=== PATIENT | male | born 1970 | race Asian ===

== ENCOUNTER → 2016-03-04 | Outpatient (CLI) | payer OTHER ==
--- NOTE | 2016-03-04 11:34 | REP ---
Clinical: Elevated liver function tests. Technique: Murphy scale ultrasound using curved array transducer. Findings: The liver demonstrates increased echogenicity suggesting fatty infiltration with focal fatty sparing at the ricky hepatis. Limited evaluation of the pancreas is unremarkable. Gallbladder demonstrates small peripheral echogenicities without shadowing measuring up to 4.5 mm suggesting small benign polyps. No cholelithiasis, wall thickening, or pericholecystic fluid. No biliary ductal dilatation is appreciated and the common bile duct measures 3.2 mm diameter. Right kidney is normal in reniform shape without hydronephrosis and measures 10.1 x 5.1 x 5.2 cm. Impression: 1. Fatty infiltration with focal fatty sparing to the liver. 2. Few small presumed benign gallbladder polyps up to 4.5 mm.
== END ==
LOC: M WHC 09:51
PROVIDERS: ATTEND Physician Assistant Medical
DX: K76.9 Liver disease, unspecified (principal); K87 Disorders of gallbladder, biliary tract and pancreas in diseases classified elsewhere

== ENCOUNTER → 2018-07-31 | Outpatient (REF) | payer BC ==
[~2018-07-31] MED LIST: ACET-907 PO; ALL10TAB28 PO; BREO1INH PO; FLON1SPR; FLUO20CA19 PO; FLUO40CA PO
== END ==
LOC: M LAB REF 12:09
PROVIDERS: ATTEND Physician Assistant
DX: A09 Infectious gastroenteritis and colitis, unspecified (principal)

== ENCOUNTER 2018-08-03 13:06 | Inpatient (IN) | payer BC, OTHER ==
[~2018-08-03] VITALS: Ht 180.3 cm; Wt 104.5 kg
[2018-08-03] MEDS ORDERED: ALL10TAB28 PO (13:50)
[2018-08-03] MEDS ORDERED: BREO1INH PO (13:50)
[2018-08-03] MEDS ORDERED: FLUO40CA PO (13:50)
[2018-08-03] MEDS ORDERED: FLON1SPR (13:50)
[2018-08-03] MEDS ORDERED: ACETAMINOPHEN TAB 650MG DOSE (2X325MG) PO ONE (14:15)
[2018-08-03] MEDS ORDERED: NS 1,000 ML IV ONE (14:15)
[2018-08-03] MEDS ORDERED: KETOROLAC 30 MG/ML VIAL (J1885) IV ONE (14:15)
[2018-08-03 14:27] LABS: BASO % 0.2 % (0.0-1.0); HEMATOCRIT 43.6 % (42.0-52.0); HEMOGLOBIN 14.9 g/dl (13.5-17.5); LYMPH # 1.6 10^3/uL (1.5-4.5); LYMPH % 7.4 % (24.0-44.0); MEAN CORPUSCULAR HEMOGLOBIN 28.6 pg (27.0-33.0); MEAN CORPUSCULAR HGB CONC 34.2 g/dl (32.0-36.5); MEAN CORPUSCULAR VOLUME 83.7 fl (80.0-96.0); MONO # 1.5 10^3/uL (0.0-0.8); MONO % 7.1 % (0.0-5.0); NEUTROPHILS # 18.3 10^3/uL (1.8-7.7); NEUTROPHILS % 84.5 % (36.0-66.0); PLATELET COUNT, AUTOMATED 222 10^3/uL (150-450); RED BLOOD COUNT 5.21 10^6/uL (4.30-6.10); WHITE BLOOD COUNT 21.7 10^3/uL (4.0-10.0)
[2018-08-03 14:37] LABS: INR 1.12; PROTHROMBIN TIME 14.6 SECONDS (12.1-14.4)
[2018-08-03 14:38] LABS: PARTIAL THROMBOPLASTIN TIME 31.4 SECONDS (25.4-37.6)
[2018-08-03 14:47] LABS: ERYTHROCYTE SEDIMENTATION RATE 55 mm/hr (0-15)
[2018-08-03 15:04] LABS: ALBUMIN 3.6 GM/DL (3.2-5.2); ALT/SGPT 40 U/L (12-78); BILIRUBIN,DIRECT 0.4 MG/DL (0.0-0.2); BILIRUBIN,TOTAL 1.2 MG/DL (0.2-1.0); BLOOD UREA NITROGEN 12 MG/DL (7-18); CALCIUM LEVEL 8.5 MG/DL (8.5-10.1); CARBON DIOXIDE LEVEL 26 MEQ/L (21-32); CHLORIDE LEVEL 105 MEQ/L (98-107); CREATININE FOR GFR 1.27 MG/DL (0.70-1.30); GLOMERULAR FILTRATION RATE > 60.0 (>60); GLUCOSE, FASTING 109 MG/DL (70-100); LIPASE 102 U/L (73-393); POTASSIUM SERUM 3.8 MEQ/L (3.5-5.1); SODIUM LEVEL 140 MEQ/L (136-145); TOTAL PROTEIN 7.2 GM/DL (6.4-8.2)
[2018-08-03] MEDS ORDERED: ISOVUE-370 76% 100ML VIAL (Q9967) As Ordered ONE (15:05)
[2018-08-03] MEDS ORDERED: ONDANSETRON 4MG/2ML VIAL (J2405) IV PRN (16:15)
[2018-08-03] MEDS ORDERED: MORPHINE 4 MG/ML 1ML VIAL/SYRINGE (J2270) IV PRN (16:15)
[2018-08-03] MEDS ORDERED: PIPERACILLIN/TAZOBACTAM SOD 3.375 GM in D5W MINI-BAG PLUS 50 ML IV ONE (16:15)
[2018-08-03] MEDS ORDERED: ACET-907 PO (16:31)
[2018-08-03] MEDS ORDERED: FLUO20CA19 PO (16:31)
--- NOTE | 2018-08-03 16:33 | REP ---
CT ABDOMEN AND PELVIS WITH IV CONTRAST: TECHNIQUE: Axial contrast enhanced images from the lung bases to the pubic symphysis using 100 mL Isovue 370 intravenous contrast material with multiplanar reformations. Visualized lung bases demonstrate mild fibro atelectatic change. The liver, spleen, adrenals, pancreas and kidneys are unremarkable. Abdominal aort is normal in caliber. There is no significant adenopathy. Sigmoid diverticula are present. There is segmental thickening of the sigmoid colon. There is surrounding streaky inflammatory change in the pericolonic fat. In addition there are foci of free air immediately surrounding the sigmoid colon with a collection of free air posterior to it. Small foci of free air extend up the central mesentery superiorly into the lower abdomen. I see no significant free fluid or fluid collection. Urinary bladder is mildly distended and not optimally evaluated. IMPRESSION: Perforated sigmoid diverticulitis. Focal free air in the pericolonic fat surrounding the sigmoid colon. Small foci of free mesenteric air seen in the lower abdomen centrally. Oswaldo Gates was informed of these findings by telephone at the time of the exam at approximately 3:50 p.m., 08/03/2018. Electronically Signed by Christopher Murphy MD 08/03/2018 08:17 P
[2018-08-03 16:45] VITALS: BP 111/70
[2018-08-03] MEDS: LR 1,000 ML IV SCH (17:07)
[2018-08-03] MEDS: PERCOCET 5MG/325MG TAB PO PRN ×2 (18:42→22:51)
--- NOTE | 2018-08-03 19:25 | HPEPDOC ---
General Surgery H&P Date of Admission Aug 03, 2018 Attending Physician: PHI WYNNE MD History and Physical CHIEF COMPLAINT: Abdominal pain HISTORY OF PRESENT ILLNESS: Patient presents himself to the emergency room with a 4 day history of ongoing abdominal pain and febrile episodes. Reports that he was in his usual state of health. Thursday morning when he woke up in about of loose stools and later during the day started having generalized crampy abdominal pain. Also the same time was having several episodes of 202. He has been taking ibuprofen both the pain and fever. He still is passing gas and Thursday he had another bout of loose bowel movements though less in amount. He was seen at the urgent care on Thursday. He was instructed to keep an eye on it and if it doesn't get better go to his primary doctor. He saw his primary doctor Thursday but at that time he reports that the pain has somewhat subsided and his upper abdomen is localized over the lower abdomen and suprapubic area. He was suspected it might had something viral and was instructed to hydrate himself and continue to watch for any development or worsening symptoms. It did worsen Thursday evening prompting him to call back his primary doctor but was unable to see him thus he presented to the emergency room. He continues to reports febrile episodes, mild bouts of nausea. Was able to tolerate food with some fullness but no vomiting. He reports a decrease in appetite. He has no prior episodes of similar symptoms. He has no significant personal or family history for inflammatory bowel disease or malignancy. He has no prior colonoscopies done for any reason. ALLERGIES: Please see below. HOME MEDICATIONS: Please see below. PAST MEDICAL HISTORY: 1. Mild intermittent asthma 2. Anxiety and depression 3. CHALINO on CPAP 4. Allergic rhinitis. PAST SURGICAL HISTORY: 1. None PERSONAL/SOCIAL HISTORY: [Denies smoking, alcohol use, or recreational drug use]. REVIEW OF SYSTEMS: GENERAL: Patient reports intermittent fevers since Thursday. Denies any abnormal weight loss NECK: [Denies any neck pain]. CARDIOVASCULAR: [Denies chest pain and palpitations]. MUSCULOSKELETAL: [Denies arthralgias, back pain and thrombophlebitis]. SKIN: [Denies rash]. NEUROLOGIC: [Denies headache, stroke and transient ischemic attack]. PSYCHIATRIC: Reports history of anxiety and depression on medications. ENDOCRINE: [Denies thyroid disease]. HEMATOLOGY/ONCOLOGY: [Denies any bleeding or clotting disorder]. HEART: [Denies any chest pains, palpitations, paroxysmal dyspnea, orthopnea]. PULMONARY: [Denies chronic cough, dyspnea and wheezing]. GASTROINTESTINAL: [Denies rectal bleeding, family history of colon cancer, constipation, diarrhea, dysphagia, heartburn and jaundice]. GENITOURINARY: [Denies dysuria, frequency, hematuria and nocturia]. ENDOCRINE: [Denies polydipsia, polyphagia, polyuria, heat or cold intolerance]. INFECTIOUS: [Denies any recent upper respiratory tract infection, UTI, need for use of antibiotics]. NUTRITION: Reports still able to eat so appetite has decreased. Denies vomiting. PHYSICAL EXAMINATION: VITAL SIGNS: Please see below. GENERAL APPEARANCE: Patient seen laying on bed looks mildly uncomfortable. He is very pleasant and cooperative. [Awake, alert, oriented]. HEENT: [Normocephalic, atraumatic. [place] palpebral conjunctivae. Anicteric sclerae. Lips mildly dry]. CHEST: [No chest wall abnormalities. Normal respiratory motion/effort]. NECK: [Supple. No thyromegaly. No lymphadenopathies]. LUNGS: [Lung sounds are clear to auscultation bilaterally. No wheezing appreciated]. HEART: [No chest wall abnormalities. Heart rate and rhythm are regular with no murmurs]. ABDOMEN: Abdomen is round, mildly distended and tympanitic to percussion. No noticeable umbilical or groin herniations. He is mildly tender in both right and left sides of the lower abdomen and moderately tender over the suprapubic area with mild guarding. He has no rebound tenderness. He is nontender in the upper part of the abdomen and epigastric area. SKIN: Warm and dry. EXTREMITIES: No deformities, no edema. NEUROLOGICAL: Awake, alert, oriented. No sensory deficits. No muscle deficits. ANCILLARIES: . LABORATORY DATA: Please see below. MICROBIOLOGY: Please see below. IMAGING: CT scan abdomen and pelvis Perforated sigmoid diverticulitis. With focal free in the pericolonic fat surrounding the sigmoid colon. Small foci of free mesenteric air is seen in the lower abdomen centrally. IMPRESSION AND PLAN: Acute diverticulitis ([place] 2) Patient is about the for now since he started eating symptomatic from his acute diverticulitis. There is no free perforation but probably contained perforation behind the mesentery of the sigmoid colon without any evidence of abscess at this point. Clinically he mostly has tenderness in the lower abdomen and does not have generalized peritonitis. His fever though is a bit concerning. He is hemodynamically stable and not showing, C4 to fever, severe signs of inflammatory reaction from this infection. Nothing by mouth IV antibiotics Serial examination possibly reimage in a couple of days ago for progression to abscess We'll continue IV antibiotics, short period of bowel rest and observe his course. I told him I would like to see improvement of his febrile episodes as well as the abdominal pain that sometimes the pain may linger. He most likely will need to reimage in 2-3 days to look for any development of abscess. The fever continues, clinically he worsens or does not get better and the imaging does not show improvement then he may need surgery. He has been advised to poss ibility of needing a temporary colostomy in case he needs surgery for sigmoid colon resection. If he does Better with or without drainage he will need a colonoscopy in a few months or so may need to confirm diagnosis of diverticulosis and rule out other causes of inflammation as he has never had a c olonoscopy done. I have explained to him the different scenarios, at times that he needs surgery, the expectation of in the ankle improvement as well as laboratory improvement and imaging improvement in a couple days with antibiotic therapy. His questions were answered at the time that I saw him. He did not voice out any particular concerns. He voices understanding for our plan. Vital Signs Vital Signs Date Time Temp Pulse Resp B/P (MAP) Pulse Ox O2 Delivery O2 Flow Rate FiO2 08/03/18 16:45 98.2 80 20 111/70 (84) 95 08/03/18 15:53 Room Air Laboratory Data Labs 24H Laboratory Tests 2 08/03/18 13:51: Immature Granulocyte % (Auto) 0.8, White Blood Count 21.7H, Red Blood Count 5.21, Hemoglobin 14.9, Hematocrit 43.6, Mean Corpuscular Volume 83.7, Mean Corpuscular Hemoglobin 28.6, Mean Corpuscular Hemoglobin Concent 34.2, Red Cell Distribution Width 12.5, Platelet Count 222, Neutrophils (%) (Auto) 84.5H, Lymphocytes (%) (Auto) 7.4L, Monocytes (%) (Auto) 7.1H, Eosinophils (%) (Auto) 0.0, Basophils (%) (Auto) 0.2, Neutrophils # (Auto) 18.3H, Lymphocytes # (Auto) 1.6, Monocytes # (Auto) 1.5H, Eosinophils # (Auto) 0.0, Basophils # (Auto) 0.0, Nucleated Red Blood Cells % (auto) 0.0, Erythrocyte Sedimentation Rate 55H, Prothrombin Time 14.6H, Prothromb Time International Ratio 1.12, Activated Partial Thromboplast Time 31.4, Anion Gap 9, Glomerular Filtration Rate > 60.0, Lactic Acid Level 1.5, Calcium Level 8.5, Aspartate Amino Transf (AST/SGOT) 16, Alanine Aminotransferase (ALT/SGPT) 40, Alkaline Phosphatase 65, Total Bilirubin 1.2H, Direct Bilirubin 0.4H, C-Reactive Protein, Quantitative 30.50H, Total Protein 7.2, Albumin 3.6, Albumin/Globulin Ratio 1.00, Lipase 102 08/03/18 13:58: Urine Color BRODY, Urine Appearance CLEAR, Urine pH 5.0, Urine Specific [place] 1.031, Urine Protein NEGATIVE, Urine Glucose (UA) NEGATIVE, Urine Ketones NEGATI VE, Urine Blood 1+H, Urine Nitrite NEGATIVE, Urine Bilirubin NEGATIVE, Urine Urobilinogen 2.0H, Urine Leukocyte Esterase NEGATIVE, Urine WBC (Auto) 2, Urine RBC (Auto) 5H, Urine Hyaline Casts (Auto) 0, Urine Bacteria (Auto) NEGATIVE, Urine Squamous Epithelial Cells 0, Urine Mucus (Auto) SMALL, Urine Sperm (Auto) CBC/BMP Laboratory Tests 08/03/18 13:51 Red Blood Count 5.21, Mean Corpuscular Volume 83.7, Mean Corpuscular Hemoglobin 28.6, Mean Corpuscular Hemoglobin Concent 34.2, Red Cell Distribution Width 12.5, Neutrophils (%) (Auto) 84.5 H, Lymphocytes (%) (Auto) 7.4 L, Monocytes (%) (Auto) 7.1 H, Eosinophils (%) (Auto) 0.0, Basophils (%) (Auto) 0.2, Neutrophils # (Auto) 18.3 H, Lymphocytes # (Auto) 1.6, Monocytes # (Auto) 1.5 H, Eosinophils # (Auto) 0.0, Basophils # (Auto) 0.0 Microbiology Microbiology 08/03/18 Blood Culture, Received Pending 08/03/18 Blood Culture, Received Pending Home Medications Scheduled Cetirizine HCl (Cetirizine HCl) 10 Mg Tablet, 10 MG PO DAILY, (Reported) Fluoxetine Hcl (Fluoxetine HCl) 20 Mg Capsule, 40 MG PO DAILY, (Reported) Fluticasone Propionate (Flonase Allergy Relief) 9.9 Ml [place].susp, 1 SPRAY NA DAILY, (Reported) Fluticasone/Vilanterol (Breo Ellipta 100-25 Mcg INH) 1 Each Blst.w.dev, 1 PUFF PO DAILY, (Reported) Scheduled PRN Acetaminophen (Tylenol) 325 Mg Tablet, 1,300 MG PO BID PRN for PAIN, (Reported) Allergies Coded Allergies: No Known Allergies (Unverified , 08/03/18) A-FIB/CHADSVASC A-FIB History Current/History of A-Fib/PAF?: No Current PO Anticoag Therapy: No PHI WYNNE MD Aug 03, 2018 18:42
[2018-08-03] MEDS: ACETAMINOPHEN TAB 650MG DOSE (2X325MG) PO PRN (19:43)
[2018-08-03 20:00] VITALS: BP 119/70
[2018-08-03] MEDS: PIPERACILLIN/TAZOBACTAM SOD 3.375 GM in D5W MINI-BAG PLUS 50 ML IV SCH (21:19)
[2018-08-03] MEDS: SENOKOT S TAB PO SCH (21:19)
[2018-08-04] VITALS: BP 123/62
[2018-08-04 04:00] VITALS: BP 148/78
[2018-08-04] MEDS: KETOROLAC 30 MG/ML VIAL (J1885) IV PRN ×3 (04:07→18:56)
[2018-08-04] MEDS: LR 1,000 ML IV SCH ×3 (04:21→18:46)
[2018-08-04] MEDS: PIPERACILLIN/TAZOBACTAM SOD 3.375 GM in D5W MINI-BAG PLUS 50 ML IV SCH ×4 (04:21→22:09)
[2018-08-04 06:05] LABS: BASO # 0.1 10^3/uL (0.0-0.2); BASO % 0.3 % (0.0-1.0); EOS # 0.1 10^3/uL (0.0-0.50); EOS % 0.5 % (0.0-3.0); HEMATOCRIT 36.8 % (42.0-52.0); LYMPH % 6.9 % (24.0-44.0); MEAN CORPUSCULAR HEMOGLOBIN 29.4 pg (27.0-33.0); MEAN CORPUSCULAR HGB CONC 34.8 g/dl (32.0-36.5); MEAN CORPUSCULAR VOLUME 84.4 fl (80.0-96.0); MONO # 1.1 10^3/uL (0.0-0.8); MONO % 7.4 % (0.0-5.0); NEUTROPHILS # 12.6 10^3/uL (1.8-7.7); PLATELET COUNT, AUTOMATED 165 10^3/uL (150-450); RED BLOOD COUNT 4.36 10^6/uL (4.30-6.10); WHITE BLOOD COUNT 14.9 10^3/uL (4.0-10.0)
[2018-08-04 06:18] LABS: HEMOGLOBIN 12.8 g/dl (13.5-17.5)
[2018-08-04 06:44] LABS: BLOOD UREA NITROGEN 16 MG/DL (7-18); CALCIUM LEVEL 8.5 MG/DL (8.5-10.1); CARBON DIOXIDE LEVEL 25 MEQ/L (21-32); CHLORIDE LEVEL 105 MEQ/L (98-107); CREATININE FOR GFR 1.27 MG/DL (0.70-1.30); GLOMERULAR FILTRATION RATE > 60.0 (>60); GLUCOSE, FASTING 107 MG/DL (70-100); POTASSIUM SERUM 3.2 MEQ/L (3.5-5.1); SODIUM LEVEL 137 MEQ/L (136-145)
[2018-08-04 08:00] VITALS: BP 135/68
[2018-08-04] MEDS: SENOKOT S TAB PO SCH ×2 (08:24→20:40)
[2018-08-04] MEDS: PERCOCET 5MG/325MG TAB PO PRN ×3 (08:25→21:11)
[2018-08-04] MEDS: ENOXAPARIN 40 MG/0.4 ML SYRINGE (J1650) SC SCH (08:25)
--- NOTE | 2018-08-04 11:00 | REP ---
KUB, ONE VIEW: HISTORY: Perforation. COMPARISON: CT abdomen and pelvis 08/03/2018. A small amount of air is present in small and large intestine. There are no air fluid levels or dilated loops of intestine. There are possible small collections of free air in the pelvis overlying the sacrum. IMPRESSION: There are possible small collections of free air in the pelvis overlying the sacrum. Electronically Signed by Gilmar Cary MD 08/04/2018 11:13 A
--- NOTE | 2018-08-04 11:04 | IPNPDOC ---
Subjective General Date/Time Seen The patient was seen on 08/04/18 at 10:59. Subject Chief Complaint/History The patient is a 48-year-old male admitted with a reason for visit of Diverticulitis Large Intestine. Patient has been febrile overnight up to 105. He reports his urine output is dark and concentrated. His pain level is just about the same, minimally improved but certainly no worse. Current Medications Current Medications Current Medications Acetaminophen (Tylenol Tab) 650 mg Q4HP PRN PO MILD PAIN or TEMP > 101 Last administered on 08/03/18at 19:43; Start 08/03/18 at 16:15 Enoxaparin Sodium (Lovenox) 40 mg DAILY SC Last administered on 08/04/18at 08 :25; Start 08/04/18 at 09:00 Home Med (Med Rec Complete!) ASDIRECTED XX ; Start 08/03/18 at 16:45; Stop 08/03/18 at 16:48; Status DC Ketorolac Tromethamine (ToRADol) 30 mg Q6HP PRN IV MILD/MODERATE PAIN (PS 1-7) Last administered on 08/04/18at 04:07; Start 08/03/18 at 16:15; Stop 08/08/18 at 16:14 Lactated Ringer's 1,000 ml @ 150 mls/hr Q6H40M IV Last administered on 08/04/18at 09:17; Start 08/03/18 at 16:10 Morphine Sulfate (Morphine Sulfate Inj) 4 mg Q2HP PRN IV SEVERE PAIN (PS 8-10); Start 08/03/18 at 16:15 Ondansetron HCl (ZOFRAN INJection) 4 mg Q6HP PRN IV NAUSEA OR VOMITING; Start 08/03/18 at 16:15 Oxycodone/ Acetaminophen (Percocet 5mg/ 325mg Tablet) 1 tab Q4HP PRN PO MODERATE PAIN (PS 5-7) Last administered on 08/03/18at 18:42; Start 08/03/18 at 16:15 Oxycodone/ Acetaminophen (Percocet 5mg/ 325mg Tablet) 2 tab Q6HP PRN PO SEVERE PAIN (PS 8-10) Last administered on 08/04/18at 08:25; Start 08/03/18 at 16:15 Piperacillin Sod/ Tazobactam Sod 3.375 gm/Dextrose 50 ml @ 50 mls/hr Q6H IV Last administered on 08/04/18at 10:11; Start 08/03/18 at 22:00 Senna/Docusate Sodium (Senokot S) 1 tab BID PO Last administered on 08/04/18at 08:24; Start 08/03/18 at 21:00 Allergies Coded Allergies: No Known Allergies (Unverified , 08/03/18) Objective Physical Examination Examination GENERAL APPEARANCE: Relatively comfortable, remains pleasant and cooperative. SKIN: Warm and moist. HEENT: Normocephalic, atraumatic. [place] palpebral conjunctiva, anicteric sclerae. Lips and mucosa appear dry. NECK: Supple, no thyromegaly. No obvious jugular venous distention. LUNGS: Clear to auscultation bilaterally. No wheezing appreciated. HEART: No chest wall abnormalities. Regular rate and rhythm with no murmurs appreciated. ABDOMEN: Abdomen is round, soft, mildly distended and tympanitic to percussion. Area of tenderness remains to same centered over the suprapubic area and towards the left lower quadrant area less on the right lower quadrant area. It is nontender on the upper abdomen and periumbilical area. He is mild voluntary guarding towards the left lower quadrant area. EXTREMITIES: No edema. Vital Signs Vital Signs Date Time Temp Pulse Resp B/P (MAP) Pulse Ox O2 Delivery O2 Flow Rate FiO2 08/04/18 09:17 16 08/04/18 08:00 100.2 88 135/68 (90) 98 08/03/18 15:53 Room Air I&Os I&O- Last 24 Hours up to 6 AM 08/04/18 06:00 Intake Total 300 ml Output Total 600 ml Balance -300 ml Laboratory Data Labs 24H Laboratory Tests 2 08/03/18 13:51: Immature Granulocyte % (Auto) 0.8, White Blood Count 21.7H, Red Blood Count 5.21, Hemoglobin 14.9, Hematocrit 43.6, Mean Corpuscular Volume 83.7, Mean Corpuscular Hemoglobin 28.6, Mean Corpuscular Hemoglobin Concent 34.2, Red Cell Distribution Width 12.5, Platelet Count 222, Neutrophils (%) (Auto) 84.5H, Lymphocytes (%) (Auto) 7.4L, Monocytes (%) (Auto) 7.1H, Eosinophils (%) (Auto) 0.0, Basophils (%) (Auto) 0.2, Neutrophils # (Auto) 18.3H, Lymphocytes # (Auto) 1.6, Monocytes # (Auto) 1.5H, Eosinophils # (Auto) 0.0, Basophils # (Auto) 0.0, Nucleated Red Blood Cells % (auto) 0.0, Erythrocyte Sedimentation Rate 55H, Prothrombin Time 14.6H, Prothromb Time International Ratio 1.12, Activated Partial Thromboplast Time 31.4, Anion Gap 9, Glomerular Filtration Rate > 60.0, Lactic Acid Level 1.5, Calcium Level 8.5, Aspartate Amino Transf (AST/SGOT) 16, Alanine Aminotransferase (ALT/SGPT) 40, Alkaline Phosphatase 65, Total Bilirubin 1.2H, Direct Bilirubin 0.4H, C-Reactive Protein, Quantitative 30.50H, Total Protein 7.2, Albumin 3.6, Albumin/Globulin Ratio 1.00, Lipase 102 08/03/18 13:58: Urine Color BRODY, Urine Appearance CLEAR, Urine pH 5.0, Urine Specific [place] 1.031, Urine Protein NEGATIVE, Urine Glucose (UA) NEGATIVE, Urine Ketones NE GATIVE, Urine Blood 1+H, Urine Nitrite NEGATIVE, Urine Bilirubin NEGATIVE, Urine Urobilinogen 2.0H, Urine Leukocyte Esterase NEGATIVE, Urine WBC (Auto) 2, Urine RBC (Auto) 5H, Urine Hyaline Casts (Auto) 0, Urine Bacteria (Auto) NEGATIVE, Urine Squamous Epithelial Cells 0, Urine Mucus (Auto) SMALL, Urine Sperm (Auto) 08/04/18 05:47: Immature Granulocyte % (Auto) 0.9, White Blood Count 14.9H, Red Blood Count 4.36, Hemoglobin 12.8#L, Hematocrit 36.8L, Mean Corpuscular Volume 84.4, Mean Corpuscular Hemoglobin 29.4, Mean Corpuscular Hemoglobin Concent 34.8, Red Cell Distribution Width 12.2, Platelet Count 165, Neutrophils (%) (Auto) 84.0H, Lymphocytes (%) (Auto) 6.9L, Monocytes (%) (Auto) 7.4H, Eosinophils (%) (Auto) 0.5, Basophils (%) (Auto) 0.3, Neutrophils # (Auto) 12.6H, Lymphocytes # (Auto) 1.0L, Monocytes # (Auto) 1.1H, Eosinophils # (Auto) 0.1, Basophils # (Auto) 0.1, Nucleated Red Blood Cells % (auto) 0.0, Anion Gap 7L, Glomerular Filtration Rate > 60.0, Calcium Level 8.5, C-Reactive Protein, Quantitative 33.80H, Blood Urea Nitrogen 16, Creatinine 1.27, Sodium Level 137, Potassium Level 3.2L, Chloride Level 105, Carbon Dioxide Level 25 CBC/BMP Laboratory Tests 08/03/18 13:51 Red Blood Count 5.21, Mean Corpuscular Volume 83.7, Mean Corpuscular Hemoglobin 28.6, Mean Corpuscular Hemoglobin Concent 34.2, Red Cell Distribution Width 12. 5, Neutrophils (%) (Auto) 84.5 H, Lymphocytes (%) (Auto) 7.4 L, Monocytes (%) (Auto) 7.1 H, Eosinophils (%) (Auto) 0.0, Basophils (%) (Auto) 0.2, Neutrophils # (Auto) 18.3 H, Lymphocytes # (Auto) 1.6, Monocytes # (Auto) 1.5 H, Eosinophils # (Auto) 0.0, Basophils # (Auto) 0.0 08/04/18 05:47 Red Blood Count 4.36, Mean Corpuscular Volume 84.4, Mean Corpuscular Hemoglobin 29.4, Mean Corpuscular Hemoglobin Concent 34.8, Red Cell Distribution Width 12.2, Neutrophils (%) (Auto) 84.0 H, Lymphocytes (%) (Auto) 6.9 L, Monocytes (%) (Auto) 7.4 H, Eosinophils (%) (Auto) 0.5, Basophils (%) (Auto) 0.3, Neutrophils # (Auto) 12.6 H, Lymphocytes # (Auto) 1.0 L, Monocytes # (Auto) 1.1 H, Eosinophils # (Auto) 0.1, Basophils # (Auto) 0.1, Calcium Level 8.5 Microbiology Microbiology 08/03/18 Blood Culture, Received Pending 08/03/18 Blood Culture, Received Pending Impression Acute diverticulitis Certainly the fever is concerning that we just have started him on IV antibiotics. Zosyn should be wide enough to cover the most common gram-negative and anaerobic organisms. His clinical examination remains the same in terms of the distribution of the tenderness. At this point I would get an x-ray is to rule out free perforation. If there is no free perforation, with continue with IV antibiotics. I will increase his IV fluid rate as he is reporting concentrated urine. We will repeat the CT scan of the abdomen and pelvis tomorrow to give it at least 24 hours [address] the prior CT to look for an abscess formation that we can drain percutaneously. I told him that if the femoral episodes remains overnight despite being more than 24 hours and IV antibiotics and there are no drainable abscess collections seen on the repeat CT, most likely that he may need surgery. Plan / VTE VTE Prophylaxis Ordered?: Yes PHI WYNNE MD Aug 04, 2018 11:04
[2018-08-04 16:00] VITALS: BP 101/59
[2018-08-04] MEDS: FLUoxetine 20 MG CAP PO SCH (16:29)
[2018-08-04 21:00] VITALS: BP 115/68
[2018-08-05 00:10] VITALS: BP 112/57
[2018-08-05] MEDS: LR 1,000 ML IV SCH ×4 (01:43→23:54)
[2018-08-05] MEDS: KETOROLAC 30 MG/ML VIAL (J1885) IV PRN ×3 (01:49→21:20)
[2018-08-05] MEDS: PIPERACILLIN/TAZOBACTAM SOD 3.375 GM in D5W MINI-BAG PLUS 50 ML IV SCH ×4 (04:40→21:20)
[2018-08-05] MEDS: PERCOCET 5MG/325MG TAB PO PRN ×2 (04:41→17:25)
[2018-08-05 06:25] LABS: BASO % 0.3 % (0.0-1.0); EOS # 0.1 10^3/uL (0.0-0.50); EOS % 1.1 % (0.0-3.0); HEMATOCRIT 35.1 % (42.0-52.0); HEMOGLOBIN 12.5 g/dl (13.5-17.5); LYMPH # 0.7 10^3/uL (1.5-4.5); LYMPH % 5.9 % (24.0-44.0); MEAN CORPUSCULAR HEMOGLOBIN 29.8 pg (27.0-33.0); MEAN CORPUSCULAR HGB CONC 35.6 g/dl (32.0-36.5); MEAN CORPUSCULAR VOLUME 83.6 fl (80.0-96.0); MONO % 8.5 % (0.0-5.0); NEUTROPHILS # 9.8 10^3/uL (1.8-7.7); NEUTROPHILS % 83.3 % (36.0-66.0); PLATELET COUNT, AUTOMATED 186 10^3/uL (150-450); WHITE BLOOD COUNT 11.8 10^3/uL (4.0-10.0)
[2018-08-05 06:58] LABS: BLOOD UREA NITROGEN 12 MG/DL (7-18); CALCIUM LEVEL 7.8 MG/DL (8.5-10.1); CARBON DIOXIDE LEVEL 26 MEQ/L (21-32); CHLORIDE LEVEL 106 MEQ/L (98-107); CREATININE FOR GFR 1.08 MG/DL (0.70-1.30); GLOMERULAR FILTRATION RATE > 60.0 (>60); GLUCOSE, FASTING 95 MG/DL (70-100); POTASSIUM SERUM 3.4 MEQ/L (3.5-5.1); SODIUM LEVEL 138 MEQ/L (136-145)
[2018-08-05 08:00] VITALS: BP 116/64
[2018-08-05] MEDS: GASTROGRAFIN SOLUTION 30ML PO SCH ×2 (08:15→09:05)
[2018-08-05] MEDS: FLUoxetine 20 MG CAP PO SCH (09:06)
[2018-08-05] MEDS: SENOKOT S TAB PO SCH ×2 (09:06→21:20)
[2018-08-05] MEDS: POTASSIUM CHLORIDE 10 MEQ SR TABLET PO SCH (09:28)
[2018-08-05] MEDS: ACETAMINOPHEN TAB 650MG DOSE (2X325MG) PO PRN (09:35)
[2018-08-05] MEDS ORDERED: ISOVUE-370 76% 100ML VIAL (Q9967) As Ordered ONE (09:40)
--- NOTE | 2018-08-05 11:34 | REP ---
CT ABDOMEN AND PELVIS WITH ORAL AND IV CONTRAST: TECHNIQUE: Axial contrast enhanced images from the lung bases to the pubic symphysis using 100 mL Isovue 370 intravenous contrast material with multiplanar reformations. COMPARISON: 08/03/2018 Visualized lung bases demonstrate mild fibroatelectatic changes. The liver, spleen, adrenals, pancreas and kidneys are unremarkable and unchanged. Abdominal aorta is normal in caliber. I seen on significant adenopathy. Once again, there are findings of sigmoid diverticulitis with free air in the mesentery surrounding the sigmoid colon extending superiorly into the mesentery of the upper pelvis. No free air is seen in the upper abdomen. There is extensive inflammatory change in this mesenteric fat and there appears to be mild phlegmonous change. No drainable abscess is seen at this time. IMPRESSION: Continued findings of sigmoid diverticulitis with areas of localized free air in the surrounding mesenteric fat extending into the upper pelvis. There appears to be some degree of phlegmonous change in this region associated with inflammation of the pericolonic fat. No drainable abscess is seen at this time. Electronically Signed by Christopher Murphy MD 08/05/2018 04:39 P
[2018-08-05 12:00] VITALS: BP 143/65
[2018-08-05] MEDS: ENOXAPARIN 40 MG/0.4 ML SYRINGE (J1650) SC SCH (12:54)
--- NOTE | 2018-08-05 13:06 | IPNPDOC ---
Subjective General Date/Time Seen The patient was seen on 08/05/18 at 13:01. Subject Chief Complaint/History The patient is a 48-year-old male admitted with a reason for visit of Diverticulitis Large Intestine. Patient continues to have episodes of fever above 102. Last episode was about 9 AM this morning. In between this patient reports he feels fine. His pain level is just about the same as in admission and maintained located on the suprapubic area and left lower quadrant area. He had a bowel movement after the CT scan and reports discomfort with moving his bowels. He feels tired. Current Medications Current Medications Current Medications Acetaminophen (Tylenol Tab) 650 mg Q4HP PRN PO MILD PAIN or TEMP > 101 Last administered on 08/05/18at 09:35; Start 08/03/18 at 16:15 Diatrizoate Meglum/ Diatrizoate Sod (Gastrografin) 10 ml Q30M PO Last administe red on 08/05/18at 09:05; Start 08/05/18 at 08:15; Stop 08/05/18 at 08:46; Status DC Enoxaparin Sodium (Lovenox) 40 mg DAILY SC Last administered on 08/05/18at 12:54; Start 08/04/18 at 09:00 Fluoxetine HCl (PROzac) 40 mg DAILY PO Last administered on 08/05/18at 09:06; Start 08/04/18 at 09:00 Home Med (Med Rec Complete!) ASDIRECTED XX ; Start 08/03/18 at 16:45; Stop 08/03/18 at 16:48; Status DC Ketorolac Tromethamine (ToRADol) 30 mg Q6HP PRN IV MILD/MODERATE PAIN (PS 1-7) Last administered on 08/05/18at 12:53; Start 08/03/18 at 16:15; Stop 08/08/18 at 16:14 Lactated Ringer's 1,000 ml @ 150 mls/hr Q6H40M IV Last administered on 08/05/18at 12:49; Start 08/03/18 at 16:10 Miscellaneous (Unresolved Patient Own Med Order) SEE LABEL COMMENTS DAILY XX ; Start 08/04/18 at 09:00 Morphine Sulfate (Morphine Sulfate Inj) 4 mg Q2HP PRN IV SEVERE PAIN (PS 8-10); Start 08/03/18 at 16:15 Ondansetron HCl (ZOFRAN INJection) 4 mg Q6HP PRN IV NAUSEA OR VOMITING; Start 08/03/18 at 16:15 Oxycodone/ Acetaminophen (Percocet 5mg/ 325mg Tablet) 1 tab Q4HP PRN PO MODERATE PAIN (PS 5-7) Last administered on 08/03/18at 18:42; Start 08/03/18 at 16:15 Oxycodone/ Acetaminophen (Percocet 5mg/ 325mg Tablet) 2 tab Q6HP PRN PO SEVERE PAIN (PS 8-10) Last administered on 08/05/18at 04:41; Start 08/03/18 at 16:15 Patient Own Medication (Patient'S Own Med) 1 ea DAILY INH ; Start 08/05/18 at 09:00; Status UNV Piperacillin Sod/ Tazobactam Sod 3.375 gm/Dextrose 50 ml @ 50 mls/hr Q6H IV Last administered on 08/05/18at 10:21; Start 08/03/18 at 22:00 Potassium Chloride (Micro-K Extencaps) 40 meq DAILY PO Last administered on 08/05/18at 09:28; Start 08/05/18 at 09:00 Senna/Docusate Sodium (Senokot S) 1 tab BID PO Last administered on 08/05/18at 09:06; Start 08/03/18 at 21:00 Allergies Coded Allergies: No Known Allergies (Unverified , 08/03/18) Objective Physical Examination Examination GENERAL APPEARANCE: Patient seen laying in bed, mildly uncomfortable seen her to the fever. SKIN: Warm moist. HEENT: Normocephalic, atraumatic. [place] palpebral conjunctiva, anicteric sclerae. Lips and mucosa appear moist. NECK: Supple, no thyromegaly. No obvious jugular venous distention. LUNGS: Clear to auscultation bilaterally. No wheezing appreciated. HEART: No chest wall abnormalities. Regular rate and rhythm with no murmurs appreciated. ABDOMEN: Abdomen is round, soft, mildly distended and tympanitic to percussion. Same area of tenderness over the suprapubic area and left lower quadrant area with mild guarding.. EXTREMITIES: Beginning minimal lower extremity edema. Vital Signs Vital Signs Date Time Temp Pulse Resp B/P (MAP) Pulse Ox O2 Delivery O2 Flow Rate FiO2 08/05/18 12:00 100.5 83 18 143/65 (91) 94 08/03/18 15:53 Room Air I&Os I&O- Last 24 Hours up to 6 AM 08/05/18 06:00 Intake Total 1630 ml Output Total 3500 ml Balance -1870 ml Laboratory Data Labs 24H Laboratory Tests 2 08/05/18 06:10: Immature Granulocyte % (Auto) 0.9, White Blood Count 11.8H, Red Blood Count 4.20L, Hemoglobin 12.5L, Hematocrit 35.1L, Mean Corpuscular Volume 83.6, Mean Corpuscular Hemoglobin 29.8, Mean Corpuscular Hemoglobin Concent 35.6, Red Cell Distribution Width 12.1, Platelet Count 186, Neutrophils (%) (Auto) 83.3H, Lymphocytes (%) (Auto) 5.9L, Monocytes (%) (Auto) 8.5H, Eosinophils (%) (Auto) 1.1, Basophils (%) (Auto) 0.3, Neutrophils # (Auto) 9.8H, Lymphocytes # (Auto) 0.7L, Monocytes # (Auto) 1.0H, Eosinophils # (Auto) 0.1, Basophils # (Auto) 0.0, Nucleated Red Blood Cells % (auto) 0.0, Anion Gap 6L, Glomerular Filtration Rate > 60.0, Blood Urea Nitrogen 12, Creatinine 1.08, Sodium Level 138, Potassium Level 3.4L, Chloride Level 106, Carbon Dioxide Level 26, Calcium Level 7.8L, C- Reactive Protein, Quantitative 34.60H CBC/BMP Laboratory Tests 08/05/18 06:10 Red Blood Count 4.20 L, Mean Corpuscular Volume 83.6, Mean Corpuscular Hemoglobin 29.8, Mean Corpuscular Hemoglobin Concent 35.6, Red Cell Distribution Width 12.1, Neutrophils (%) (Auto) 83.3 H, Lymphocytes (%) (Auto) 5.9 L, Monocytes (%) (Auto) 8.5 H, Eosinophils (%) (Auto) 1.1, Basophils (%) (Auto) 0.3, Neutrophils # (Auto) 9.8 H, Lymphocytes # (Auto) 0.7 L, Monocytes # (Auto) 1.0 H, Eosinophils # (Auto) 0.1, Basophils # (Auto) 0.0, Calcium Level 7.8 L Microbiology Microbiology 08/03/18 Blood Culture - Preliminary, Resulted No growth after 24 hours . All specim... 08/03/18 Blood Culture - Preliminary, Resulted No growth after 24 hours . All specim... Imaging Studies CT scan abdomen and pelvis with by mouth and IV contrast Continued findings of sigmoid diverticulitis with areas of localized free air in the surrounding mesenteric fat extending into the upper pelvis. There appears to be some degree of phlegmonous change in this region associated with inflammation of the pericolonic fat. No drainable abscess is seen at this time. Impression Acute diverticulitis I repeated his CT of the abdomen and pelvis to try and see if he would develop an abscess may be amenable to drainage per cutaneously given the prominence of the fever and elevated CRP despite continuing improvement of his leukocytosis. Also he is pain and discomfort is mainly centered around the left lower abdomen and suprapubic area is non-tender in the upper abdomen. Unfortunately there is no drainable collection but more signs of phlegmon surrounding the inflamed area of the sigmoid colon. In us to be febrile. At this point and fortunately, the only option available would be to bring him to the operating room. I'm hoping that I will find some small pockets of abscess not visible on the CT and hopefully by draining this, he will clinically improved and not need a colostomy. If it turns out that this is a lot more to phlegmon surrounding the colon itself, the only available surgical intervention would be to resect that portion of the colon and leave him with a temporary colostomy. Patient is made aware of this and is verbally consented to proceed with the surgery. He'll be scheduled for surgery tomorrow. Plan / VTE VTE Prophylaxis Ordered?: Yes PHI WYNNE MD Aug 05, 2018 13:06
[2018-08-05 16:30] VITALS: BP 133/74
[2018-08-05 19:46] VITALS: BP 124/71
[2018-08-06 00:56] VITALS: BP 137/74
[2018-08-06] MEDS: PIPERACILLIN/TAZOBACTAM SOD 3.375 GM in D5W MINI-BAG PLUS 50 ML IV SCH ×4 (04:16→21:55)
[2018-08-06] MEDS: KETOROLAC 30 MG/ML VIAL (J1885) IV PRN ×2 (04:17→10:56)
[2018-08-06 06:31] LABS: BASO # 0.1 10^3/uL (0.0-0.2); BASO % 0.5 % (0.0-1.0); EOS # 0.2 10^3/uL (0.0-0.50); EOS % 2.3 % (0.0-3.0); HEMATOCRIT 37.5 % (42.0-52.0); HEMOGLOBIN 12.8 g/dl (13.5-17.5); LYMPH # 0.8 10^3/uL (1.5-4.5); LYMPH % 8.6 % (24.0-44.0); MEAN CORPUSCULAR HEMOGLOBIN 28.2 pg (27.0-33.0); MEAN CORPUSCULAR HGB CONC 34.1 g/dl (32.0-36.5); MEAN CORPUSCULAR VOLUME 82.6 fl (80.0-96.0); MONO # 0.8 10^3/uL (0.0-0.8); MONO % 8.5 % (0.0-5.0); NEUTROPHILS # 7.6 10^3/uL (1.8-7.7); NEUTROPHILS % 78.7 % (36.0-66.0); PLATELET COUNT, AUTOMATED 251 10^3/uL (150-450); RED BLOOD COUNT 4.54 10^6/uL (4.30-6.10); WHITE BLOOD COUNT 9.7 10^3/uL (4.0-10.0)
[2018-08-06 07:04] LABS: BLOOD UREA NITROGEN 10 MG/DL (7-18); CALCIUM LEVEL 8.6 MG/DL (8.5-10.1); CARBON DIOXIDE LEVEL 28 MEQ/L (21-32); CHLORIDE LEVEL 103 MEQ/L (98-107); CREATININE FOR GFR 1.05 MG/DL (0.70-1.30); GLOMERULAR FILTRATION RATE > 60.0 (>60); GLUCOSE, FASTING 92 MG/DL (70-100); POTASSIUM SERUM 3.6 MEQ/L (3.5-5.1); SODIUM LEVEL 139 MEQ/L (136-145)
[2018-08-06 08:00] VITALS: BP 157/85
[2018-08-06] MEDS: SENOKOT S TAB PO SCH ×2 (09:00→22:01)
[2018-08-06] MEDS: ENOXAPARIN 40 MG/0.4 ML SYRINGE (J1650) SC SCH (09:28)
[2018-08-06] MEDS: FLUoxetine 20 MG CAP PO SCH (09:28)
[2018-08-06] MEDS: LR 1,000 ML IV SCH ×3 (09:29→20:12)
[2018-08-06] MEDS: POTASSIUM CHLORIDE 10 MEQ SR TABLET PO SCH (09:29)
[2018-08-06] MEDS: BREO ELLIPTA INH SCH (09:35)
--- NOTE | 2018-08-06 09:52 | IPNPDOC ---
Subjective General Date/Time Seen The patient was seen on 08/06/18 at 09:44. Subject Chief Complaint/History The patient is a 48-year-old male admitted with a reason for visit of Diverticulitis Large Intestine. Patient reports he didn't sleep last night. No febrile episodes last night started since 9 AM yesterday morning. Patient reports he's feeling better, less abdominal discomfort. He denies any nausea. Current Medications Current Medications Current Medications Acetaminophen (Tylenol Tab) 650 mg Q4HP PRN PO MILD PAIN or TEMP > 101 Last administered on 08/05/18at 09:35; Start 08/03/18 at 16:15 Diatrizoate Meglum/ Diatrizoate Sod (Gastrografin) 10 ml Q30M PO Last administered on 08/05/18at 09:05; Start 08/05/18 at 08:15; Stop 08/05/18 at 08:46; Status DC Enoxaparin Sodium (Lovenox) 40 mg DAILY SC Last administered on 08/06/18at 09:28; Start 08/04/18 at 09:00 Fluoxetine HCl (PROzac) 40 mg DAILY PO Last administered on 08/06/18at 09:28; Start 08/04/18 at 09:00 Home Med (Med Rec Complete!) ASDIRECTED XX ; Start 08/03/18 at 16:45; Stop 08/03/18 at 16:48; Status DC Ketorolac Tromethamine (ToRADol) 30 mg Q6HP PRN IV MILD/MODERATE PAIN (PS 1-7) Last administered on 08/06/18at 04:17; Start 08/03/18 at 16:15; Stop 08/08/18 at 16:14 Lactated Ringer's 1,000 ml @ 100 mls/hr Q10H IV Last administered on 08/06/18at 09:29; Start 08/03/18 at 16:10 Miscellaneous (Unresolved Patient Own Med Order) SEE LABEL COMMENTS DAILY XX ; Start 08/04/18 at 09:00 Morphine Sulfate (Morphine Sulfate Inj) 4 mg Q2HP PRN IV SEVERE PAIN (PS 8-10); Start 08/03/18 at 16:15 Ondansetron HCl (ZOFRAN INJection) 4 mg Q6HP PRN IV NAUSEA OR VOMITING; Start 08/03/18 at 16:15 Oxycodone/ Acetaminophen (Percocet 5mg/ 325mg Tablet) 1 tab Q4HP PRN PO MODERATE PAIN (PS 5-7) Last administered on 08/03/18at 18:42; Start 08/03/18 at 16:15 Oxycodone/ Acetaminophen (Percocet 5mg/ 325mg Tablet) 2 tab Q6HP PRN PO SEVERE PAIN (PS 8-10) Last administered on 08/05/18at 17:25; Start 08/03/18 at 16:15 Patient Own Medication (Patient'S Own Med) Breo-Ellipta (FLUTICASONE/ VILANTEROL... DAILY@0800 INH Last administered on 08/06/18 09:35; Start 08/05/18 at 08:00 Piperacillin Sod/ Tazobactam Sod 3.375 gm/Dextrose 50 ml @ 50 mls/hr Q6H IV Last administered on 08/06/18 09:28; Start 08/03/18 at 22:00 Potassium Chloride (Micro-K Extencaps) 40 meq DAILY PO Last administered on 08/06/18 09:29; Start 08/05/18 at 09:00 Senna/Docusate Sodium (Senokot S) 1 tab BID PO Last administered on 08/05/18 21:20; Start 08/03/18 at 21:00 Allergies Coded Allergies: No Known Allergies (Unverified , 08/03/18) Objective Physical Examination Examination GENERAL APPEARANCE:Patient seen, laying in bed, awake, alert, and oriented. Comfortable, in no acute distress. SKIN: Slightly sweaty,: Moist HEENT: Normocephalic, atraumatic. [place] palpebral conjunctiva, anicteric sclerae. Lips and mucosa appear moist. NECK: Supple, no thyromegaly. No obvious jugular venous distention. LUNGS: Clear to auscultation bilaterally. No wheezing appreciated. HEART: No chest wall abnormalities. Regular rate and rhythm with no murmurs appreciated. ABDOMEN: Abdomen is round, soft, minimally distended. Very minimal tenderness l eft over the suprapubic area and left lower quadrant area without any guarding. EXTREMITIES: Extremities have no deformities. No edema identified. Vital Signs Vital Signs Date Time Temp Pulse Resp B/P (MAP) Pulse Ox O2 Delivery O2 Flow Rate FiO2 08/06/18 08:00 97.7 62 20 157/85 (109) 97 08/03/18 15:53 Room Air I&Os I&O- Last 24 Hours up to 6 AM 08/06/18 06:00 Intake Total 6280 ml Output Total 3750 ml Balance 2530 ml Laboratory Data Labs 24H Laboratory Tests 2 08/06/18 06:19: Immature Granulocyte % (Auto) 1.4, White Blood Count 9.7, Red Blood Count 4.54, Hemoglobin 12.8L, Hematocrit 37.5L, Mean Corpuscular Volume 82.6, Mean Corpuscular Hemoglobin 28.2, Mean Corpuscular Hemoglobin Concent 34.1, Red Cell Distribution Width 12.1, Platelet Count 251, Neutrophils (%) (Auto) 78.7H, Lymphocytes (%) (Auto) 8.6L, Monocytes (%) (Auto) 8.5H, Eosinophils (%) (Auto) 2.3, Basophils (%) (Auto) 0.5, Neutrophils # (Auto) 7.6, Lymphocytes # (Auto) 0.8L, Monocytes # (Auto) 0.8, Eosinophils # (Auto) 0.2, Basophils # (Auto) 0.1, Nucleated Red Blood Cells % (auto) 0.0, Anion Gap 8, Glomerular Filtration Rate > 60.0, Blood Urea Nitrogen 10, Creatinine 1.05, Sodium Level 139, Potassium Level 3.6, Chloride Level 103, Carbon Dioxide Level 28, Calcium Level 8.6, C- Reactive Protein, Quantitative 33.40H CBC/BMP Laboratory Tests 08/06/18 06:19 Red Blood Count 4.54, Mean Corpuscular Volume 82.6, Mean Corpuscular Hemoglobin 28.2, Mean Corpuscular Hemoglobin Concent 34.1, Red Cell Distribution Width 12.1, Neutrophils (%) (Auto) 78.7 H, Lymphocytes (%) (Auto) 8.6 L, Monocytes (%) (Auto) 8.5 H, Eosinophils (%) (Auto) 2.3, Basophils (%) (Auto) 0.5, Neutrophils # (Auto) 7.6, Lymphocytes # (Auto) 0.8 L, Monocytes # (Auto) 0.8, Eosinophils # (Auto) 0.2, Basophils # (Auto) 0.1, Calcium Level 8.6 Microbiology Microbiology 08/03/18 Blood Culture - Preliminary, Resulted No Growth after 48 hours. All Specime... 08/03/18 Blood Culture - Preliminary, Resulted No Growth after 48 hours. All Specime... Impression Acute Diverticulitis with localized perforation He has been afebrile overnight. He says he feels somewhat better. Less abdominal discomfort. He is passing flatus and did have a bowel movement yesterday after the CT scan. I reviewed his labs with him. His leukocytosis has resolved. His CRP also seems to have tapered off and slightly lower today. His MAXIMUM TEMPERATURE is 102.5 which is about 9 AM yesterday morning and has not had any febrile episodes since. Given this positive development I will hold off on our previously discussed surgery for today and continue him with IV antibiotics through the weekend and see if he continues to get better. Plan for doing the repeat CT scan of the abdomen and pelvis on the her Thursday depending on how he is doing. With how his course is tracking, he is more likely to form an abscess and we will look for that again Thursday he may need a drainage for that. If that is not present and he still continues to have febrile episodes and he most likely will need to bring him to the operating room next week. Patient is in agreement with our plan as outlined it. Plan / VTE VTE Prophylaxis Ordered?: Yes PHI WYNNE MD Aug 06, 2018 09:52
[2018-08-06 16:00] VITALS: BP 130/76
[2018-08-06] MEDS: PERCOCET 5MG/325MG TAB PO PRN ×2 (16:27→22:02)
[2018-08-06 20:00] VITALS: BP 148/89
[2018-08-07] VITALS: BP 116/70
[2018-08-07] MEDS: PIPERACILLIN/TAZOBACTAM SOD 3.375 GM in D5W MINI-BAG PLUS 50 ML IV SCH ×4 (04:28→21:43)
[2018-08-07] MEDS: PERCOCET 5MG/325MG TAB PO PRN ×2 (04:35→21:19)
[2018-08-07 06:44] LABS: BASO # 0.1 10^3/uL (0.0-0.2); BASO % 0.7 % (0.0-1.0); EOS # 0.3 10^3/uL (0.0-0.50); EOS % 4.4 % (0.0-3.0); HEMATOCRIT 37.3 % (42.0-52.0); HEMOGLOBIN 13.1 g/dl (13.5-17.5); LYMPH # 0.9 10^3/uL (1.5-4.5); LYMPH % 11.9 % (24.0-44.0); MEAN CORPUSCULAR HEMOGLOBIN 29.4 pg (27.0-33.0); MEAN CORPUSCULAR HGB CONC 35.1 g/dl (32.0-36.5); MEAN CORPUSCULAR VOLUME 83.8 fl (80.0-96.0); MONO % 13.8 % (0.0-5.0); NEUTROPHILS % 66.4 % (36.0-66.0); PLATELET COUNT, AUTOMATED 236 10^3/uL (150-450); RED BLOOD COUNT 4.45 10^6/uL (4.30-6.10); WHITE BLOOD COUNT 7.5 10^3/uL (4.0-10.0)
[2018-08-07 07:01] LABS: BLOOD UREA NITROGEN 9 MG/DL (7-18); CALCIUM LEVEL 8.5 MG/DL (8.5-10.1); CARBON DIOXIDE LEVEL 28 MEQ/L (21-32); CHLORIDE LEVEL 106 MEQ/L (98-107); CREATININE FOR GFR 0.97 MG/DL (0.70-1.30); GLOMERULAR FILTRATION RATE > 60.0 (>60); GLUCOSE, FASTING 92 MG/DL (70-100); POTASSIUM SERUM 3.8 MEQ/L (3.5-5.1); SODIUM LEVEL 139 MEQ/L (136-145)
[2018-08-07] MEDS: BREO ELLIPTA INH SCH (07:49)
[2018-08-07 08:00] VITALS: BP 126/89
[2018-08-07] MEDS: FLUoxetine 20 MG CAP PO SCH (08:13)
[2018-08-07] MEDS: ENOXAPARIN 40 MG/0.4 ML SYRINGE (J1650) SC SCH (08:13)
[2018-08-07] MEDS: SENOKOT S TAB PO SCH ×2 (08:13→21:00)
[2018-08-07] MEDS: POTASSIUM CHLORIDE 10 MEQ SR TABLET PO SCH (08:13)
[2018-08-07] MEDS: LR 1,000 ML IV SCH ×2 (08:18→08:19)
[2018-08-07] MEDS: KETOROLAC 30 MG/ML VIAL (J1885) IV PRN (08:18)
[2018-08-07 16:00] VITALS: BP 129/92
--- NOTE | 2018-08-07 16:59 | IPN ---
DATE: 08/07/2018 The patient was seen at approximately 1430 hours. HISTORY: The patient is now hospital day number 5 for treatment of diverticulitis of the sigmoid colon with a significant amount of air within the mesentery. He had significant fevers on presentation and these took several days to resolve. Today he reports that he is feeling much better. He had a bowel movement earlier that had a small amount of blood noted. He has been voiding without difficulty. VITAL SIGNS: He has been afebrile over the past 24 hours. His pulse is in the 50s and 60s. Blood pressure is good. Intake and output shows that yesterday he had 4700 in with 4600 out. PHYSICAL EXAMINATION: The patient is sitting up in bed looking fairly comfortable. He is alert and oriented. Heart and lung examinations unremarkable. Abdomen is mildly protuberant. He has bowel sounds present. There is no tympany to percussion. There is no significant tenderness to percussion. On palpation there is an area slightly below the level of the umbilicus in the medial aspect of the left lower quadrant where he has some mild to moderate direct tenderness. This area is probably no greater than 10 to 12 cm maximally. The remainder of the abdomen is soft and without significant tenderness. LABORATORY STUDIES: Today, white count 7.5, hemoglobin 13, hematocrit 37, and platelet count of 236,000. His differential count shows 66% neutrophils, 12% lymphocytes and 14% monocytes. Chemistry profile shows normal electrolytes with a BUN of 9, creatinine 0.97, glucose of 92. His C-reactive protein today is down from 33.4 yesterday to 15.6. IMPRESSION: The patient appears to be doing well now with his diverticulitis and contained perforation. PLAN: We will continue his current antibiotics. He will remain on clear liquids today. He has repeat laboratories ordered tomorrow. Dr. De León has also ordered a repeat CT scan of the abdomen and pelvis tomorrow to look for any evidence of abscess formation.
[2018-08-07 20:00] VITALS: BP 134/96
[2018-08-08] VITALS: BP 125/83
[2018-08-08] MEDS: PIPERACILLIN/TAZOBACTAM SOD 3.375 GM in D5W MINI-BAG PLUS 50 ML IV SCH ×4 (03:35→21:19)
[2018-08-08] MEDS: GASTROGRAFIN SOLUTION 30ML PO SCH ×2 (06:23→06:54)
[2018-08-08] MEDS: PERCOCET 5MG/325MG TAB PO PRN (06:27)
[2018-08-08 06:58] LABS: BASO # 0.1 10^3/uL (0.0-0.2); BASO % 0.7 % (0.0-1.0); EOS # 0.4 10^3/uL (0.0-0.50); EOS % 3.8 % (0.0-3.0); HEMATOCRIT 41.6 % (42.0-52.0); HEMOGLOBIN 14.3 g/dl (13.5-17.5); LYMPH # 1.7 10^3/uL (1.5-4.5); LYMPH % 17.2 % (24.0-44.0); MEAN CORPUSCULAR HEMOGLOBIN 28.6 pg (27.0-33.0); MEAN CORPUSCULAR HGB CONC 34.4 g/dl (32.0-36.5); MEAN CORPUSCULAR VOLUME 83.2 fl (80.0-96.0); MONO # 1.1 10^3/uL (0.0-0.8); MONO % 11.2 % (0.0-5.0); NEUTROPHILS # 6.2 10^3/uL (1.8-7.7); NEUTROPHILS % 63.4 % (36.0-66.0); PLATELET COUNT, AUTOMATED 296 10^3/uL (150-450); WHITE BLOOD COUNT 9.8 10^3/uL (4.0-10.0)
[2018-08-08 07:22] LABS: BLOOD UREA NITROGEN 13 MG/DL (7-18); CALCIUM LEVEL 8.8 MG/DL (8.5-10.1); CARBON DIOXIDE LEVEL 28 MEQ/L (21-32); CHLORIDE LEVEL 104 MEQ/L (98-107); CREATININE FOR GFR 1.17 MG/DL (0.70-1.30); GLOMERULAR FILTRATION RATE > 60.0 (>60); GLUCOSE, FASTING 85 MG/DL (70-100); POTASSIUM SERUM 4.6 MEQ/L (3.5-5.1); SODIUM LEVEL 138 MEQ/L (136-145)
[2018-08-08] MEDS: BREO ELLIPTA INH SCH (07:53)
[2018-08-08 08:00] VITALS: BP 128/80
[2018-08-08] MEDS ORDERED: ISOVUE-370 76% 100ML VIAL (Q9967) As Ordered ONE (08:13)
[2018-08-08] MEDS: ENOXAPARIN 40 MG/0.4 ML SYRINGE (J1650) SC SCH (09:25)
[2018-08-08] MEDS: SENOKOT S TAB PO SCH ×2 (09:25→20:23)
[2018-08-08] MEDS: FLUoxetine 20 MG CAP PO SCH (09:25)
[2018-08-08] MEDS: POTASSIUM CHLORIDE 10 MEQ SR TABLET PO SCH (09:25)
[2018-08-08 16:00] VITALS: BP 141/87
[2018-08-08 20:00] VITALS: BP 133/85
[2018-08-08] MEDS: ACETAMINOPHEN TAB 650MG DOSE (2X325MG) PO PRN (21:19)
[2018-08-09 04:00] VITALS: BP 109/70
[2018-08-09] MEDS: PIPERACILLIN/TAZOBACTAM SOD 3.375 GM in D5W MINI-BAG PLUS 50 ML IV SCH ×2 (04:01→10:00)
[2018-08-09] MEDS: CIPROFLOXACIN 500 MG TAB PO SCH ×2 (06:00→17:28)
[2018-08-09 06:38] LABS: BASO # 0.1 10^3/uL (0.0-0.2); BASO % 1.2 % (0.0-1.0); EOS # 0.4 10^3/uL (0.0-0.50); EOS % 3.6 % (0.0-3.0); HEMATOCRIT 42.4 % (42.0-52.0); HEMOGLOBIN 14.8 g/dl (13.5-17.5); LYMPH # 1.6 10^3/uL (1.5-4.5); LYMPH % 16.2 % (24.0-44.0); MEAN CORPUSCULAR HEMOGLOBIN 29.1 pg (27.0-33.0); MEAN CORPUSCULAR HGB CONC 34.9 g/dl (32.0-36.5); MEAN CORPUSCULAR VOLUME 83.5 fl (80.0-96.0); MONO # 0.9 10^3/uL (0.0-0.8); MONO % 9.5 % (0.0-5.0); NEUTROPHILS # 6.4 10^3/uL (1.8-7.7); NEUTROPHILS % 64.9 % (36.0-66.0); PLATELET COUNT, AUTOMATED 335 10^3/uL (150-450); RED BLOOD COUNT 5.08 10^6/uL (4.30-6.10); WHITE BLOOD COUNT 9.8 10^3/uL (4.0-10.0)
[2018-08-09 07:00] LABS: ALBUMIN 2.9 GM/DL (3.2-5.2); ALT/SGPT 45 U/L (12-78); BILIRUBIN,TOTAL 0.5 MG/DL (0.2-1.0); BLOOD UREA NITROGEN 14 MG/DL (7-18); CARBON DIOXIDE LEVEL 30 MEQ/L (21-32); CHLORIDE LEVEL 104 MEQ/L (98-107); CREATININE FOR GFR 1.12 MG/DL (0.70-1.30); GLOMERULAR FILTRATION RATE > 60.0 (>60); GLUCOSE, FASTING 86 MG/DL (70-100); POTASSIUM SERUM 4.2 MEQ/L (3.5-5.1); SODIUM LEVEL 138 MEQ/L (136-145)
--- NOTE | 2018-08-09 07:12 | REP ---
CT ABDOMEN AND PELVIS WITH ORAL AND IV CONTRAST: Visualized lung bases again demonstrate fibro atelectatic change. The liver, spleen, adrenals, pancreas and kidneys are again unremarkable. There is no adenopathy. There are again findings of sigmoid diverticulitis. There are evolving inflammatory changes surrounding the sigmoid colon with multiple foci of mesenteric air again seen. There are now areas of confluent phlegmonous change which have evolved sine the prior study, however again no drainable abscess is seen. IMPRESSION: Continued evolved changes surrounding an area of sigmoid diverticulitis in the surrounding mesenteric fat compatible with phlegmonous change. Foci of mesenteric air and inflammatory change have been more confluent but there is no evidence of drainable abscess at this time. Electronically Signed by Christopher Murphy MD 08/09/2018 08:28 A
[2018-08-09 08:30] VITALS: BP 113/78
[2018-08-09] MEDS: FLUoxetine 20 MG CAP PO SCH (09:32)
[2018-08-09] MEDS: SENOKOT S TAB PO SCH (09:32)
[2018-08-09] MEDS: BREO ELLIPTA INH SCH (10:11)
--- NOTE | 2018-08-09 10:51 | IPNPDOC ---
Subjective General Date/Time Seen The patient was seen on 08/09/18 at 10:51. Subject Chief Complaint/History The patient is a 48-year-old male admitted with a reason for visit of Diverticulitis Large Intestine. He reports he is doing well. He is not having any febrile episodes to this weekend. He reports he's feeling hungry. He only has minimal abdominal discomfort left. Current Medications Current Medications Current Medications Acetaminophen (Tylenol Tab) 650 mg Q4HP PRN PO MILD PAIN or TEMP > 101 Last administered on 08/08/18at 21:19; Start 08/03/18 at 16:15 Diatrizoate Meglum/ Diatrizoate Sod (Gastrografin) 10 ml Q30M PO Last administered on 08/05/18at 09:05; Start 08/05/18 at 08:15; Stop 08/05/18 at 08:46; Status DC Diatrizoate Meglum/ Diatrizoate Sod (Gastrografin) 10 ml Q30M PO Last administered on 08/08/18at 06:54; Start 08/08/18 at 06:00; Stop 08/08/18 at 06:31; Status DC Enoxaparin Sodium (Lovenox) 40 mg DAILY SC Last administered on 08/08/18at 09:25; Start 08/04/18 at 09:00 Fluoxetine HCl (PROzac) 40 mg DAILY PO Last administered on 08/09/18at 09:32; Start 08/04/18 at 09:00 Home Med (Med Rec Complete!) ASDIRECTED XX ; Start 08/03/18 at 16:45; Stop 08/03/18 at 16:48; Status DC Ketorolac Tromethamine (ToRADol) 30 mg Q6HP PRN IV MILD/MODERATE PAIN (PS 1-7) Last administered on 08/07/18at 08:18; Start 08/03/18 at 16:15; Stop 08/08/18 at 16:14; Status DC Lactated Ringer's 1,000 ml @ 100 mls/hr Q10H IV Last administered on 08/07/18at 08:18; Start 08/03/18 at 16:10; Stop 08/07/18 at 08:53; Status DC Miscellaneous (Unresolved Patient Own Med Order) SEE LABEL COMMENTS DAILY XX ; Start 08/04/18 at 09:00; Stop 08/06/18 at 09:49; Status DC Morphine Sulfate (Morphine Sulfate Inj) 4 mg Q2HP PRN IV SEVERE PAIN (PS 8-10); Start 08/03/18 at 16:15; Stop 08/07/18 at 08:53; Status DC Ondansetron HCl (ZOFRAN INJection) 4 mg Q6HP PRN IV NAUSEA OR VOMITING; Start 08/03/18 at 16:15 Oxycodone/ Acetaminophen (Percocet 5mg/ 325mg Tablet) 1 tab Q4HP PRN PO MODERATE PAIN (PS 5-7) Last administered on 08/08/18at 06:27; Start 08/03/18 at 16:15 Oxycodone/ Acetaminophen (Percocet 5mg/ 325mg Tablet) 2 tab Q6HP PRN PO SEVERE PAIN (PS 8-10) Last administered on 08/07/18at 21:19; Start 08/03/18 at 16:15 Patient Own Medication (Patient'S Own Med) Breo-Ellipta (FLUTICASONE/ VILANTEROL... DAILY@0800 INH Last administered on 08/09/18at 10:11; Start 08/05/18 at 08:00 Piperacillin Sod/ Tazobactam Sod 3.375 gm/Dextrose 50 ml @ 50 mls/hr Q6H IV Last administered on 08/09/18at 04:01; Start 08/03/18 at 22:00 Potassium Chloride (Micro-K Extencaps) 40 meq DAILY PO Last administered on 08/08/18at 09:25; Start 08/05/18 at 09:00; Stop 08/09/18 at 09:30; Status DC Senna/Docusate Sodium (Senokot S) 1 tab BID PO Last administered on 08/09/18at 09:32; Start 08/03/18 at 21:00 Allergies Coded Allergies: No Known Allergies (Unverified , 08/03/18) Objective Physical Examination Examination GENERAL APPEARANCE: Patient looks very comfortable. SKIN: Warm and moist. HEENT: Normocephalic, atraumatic. [place] palpebral conjunctiva, anicteric sclerae. Lips and mucosa appear moist. NECK: Supple, no thyromegaly. No obvious jugular venous distention. LUNGS: Clear to auscultation bilaterally. No wheezing appreciated. HEART: No chest wall abnormalities. Regular rate and rhythm with no murmurs appreciated. ABDOMEN: Abdomen is round, soft, nondistended. With very minimal tenderness over the suprapubic area without any guarding. Nontender to right lower quadrant. Minimal discomfort but no tenderness on the left lower quadrant.. EXTREMITIES: Extremities have no deformities. No edema identified. Vital Signs Vital Signs Date Time Temp Pulse Resp B/P (MAP) Pulse Ox O2 Delivery O2 Flow Rate FiO2 08/09/18 08:30 97.7 56 18 113/78 (90) 98 08/03/18 15:53 Room Air I&Os I&O- Last 24 Hours up to 6 AM 08/09/18 06:00 Intake Total 2280 ml Output Total 1400 ml Balance 880 ml Laboratory Data Labs 24H Laboratory Tests 2 08/09/18 06:01: Immature Granulocyte % (Auto) 4.6H, White Blood Count 9.8, Red Blood Count 5.08, Hemoglobin 14.8, Hematocrit 42.4, Mean Corpuscular Volume 83.5, Mean Corpuscular Hemoglobin 29.1, Mean Corpuscular Hemoglobin Concent 34.9, Red Cell Distribution Width 12.0, Platelet Count 335, Neutrophils (%) (Auto) 64.9, Lymphocytes (%) (Auto) 16.2L, Monocytes (%) (Auto) 9.5H, Eosinophils (%) (Auto) 3.6H, Basophils (%) (Auto) 1.2H, Neutrophils # (Auto) 6.4, Lymphocytes # (Auto) 1.6, Monocytes # (Auto) 0.9H, Eosinophils # (Auto) 0.4, Basophils # (Auto) 0.1, Nucleated Red Blo od Cells % (auto) 0.0, Anion Gap 4L, Glomerular Filtration Rate > 60.0, Blood Urea Nitrogen 14, Creatinine 1.12, Sodium Level 138, Potassium Level 4.2, Chloride Level 104, Carbon Dioxide Level 30, Calcium Level 9.0, Aspartate Amino Transf (AST/SGOT) 23, Alanine Aminotransferase (ALT/SGPT) 45, Alkaline Phosphatase 60, Total Bilirubin 0.5, Total Protein 7.0, Albumin 2.9L, Albumin/Globulin Ratio 0.71L CBC/BMP Laboratory Tests 08/09/18 06:01 Red Blood Count 5.08, Mean Corpuscular Volume 83.5, Mean Corpuscular Hemoglobin 29.1, Mean Corpuscular Hemoglobin Concent 34.9, Red Cell Distribution Width 12.0, Neutrophils (%) (Auto) 64.9, Lymphocytes (%) (Auto) 16.2 L, Monocytes (%) (Auto) 9.5 H, Eosinophils (%) (Auto) 3.6 H, Basophils (%) (Auto) 1.2 H, Neutrophils # (Auto) 6.4, Lymphocytes # (Auto) 1.6, Monocytes # (Auto) 0.9 H, Eosinophils # (Auto) 0.4, Basophils # (Auto) 0.1, Calcium Level 9.0, Aspartate Amino Transf (AST/SGOT) 23, Alanine Aminotransferase (ALT/SGPT) 45, Alkaline Phosphatase 60, Total Bilirubin 0.5, Total Protein 7.0, Albumin 2.9 L Microbiology Microbiology 08/03/18 Blood Culture - Final, Complete NO GROWTH AFTER 5 DAYS 08/03/18 Blood Culture - Final, Complete NO GROWTH AFTER 5 DAYS Impression Acute Diverticulitis with contained perforation He continues to improve clinically with no further febrile episodes. His WBC count is normalized and his latest CRP is down to 15 from as high up as 35. I reviewed the images of the CT scan of the abdomen and pelvis done yesterday with him likewise with our radiologist. However radiologist does not think there is enough accumulated fluid and mostly swelling at the mesentery and no abscess to drain. At this point we'll advance his diet and switch to oral antibiotics. I told him that I have expected an abscess may form. I will follow him up closely for this possibility. Likewise I discussed with him subsequent plans of performing a colonoscopy and told them that if he wishes to, given the complexity of his first bout of diverticulitis, it is an option to perform an elective sigmoid colon resection later date. soft diet Switch to oral antibiotics. Plan / VTE VTE Prophylaxis Ordered?: Yes PHI WYNNE MD Aug 09, 2018 10:51
[2018-08-09] MEDS: ENOXAPARIN 40 MG/0.4 ML SYRINGE (J1650) SC SCH (11:23)
--- NOTE | 2018-08-09 11:56 | IPN ---
DATE: 08/08/2018 Patient was seen in the mid to late afternoon. HISTORY: Patient was admitted on or about 08/03/2018 with diverticulitis of the sigmoid colon with some significant air within the mesentery. He has been on Zosyn for antibiotic coverage. He had some significant fevers when he first presented, and those have now resolved. He is actually feeling pretty comfortable. He had a repeat CT scan this morning for followup. Vital signs: Show that he has been afebrile over the past 24 hours. He had a single temperature up to 100 degrees at 1500 hours on 08/07/2018. His pulse is in the 50s and 60s, and his blood pressure is good. Intake and output: Yesterday, he had 3900 in with 2600 out. His intravenous (IV) fluid was discontinued yesterday. PHYSICAL EXAM: Patient is lying in the bed looking quite comfortable. He is alert and oriented. Heart and lung exams are unremarkable. The abdomen is soft with some mild tenderness low in the left mid to lower abdomen. Laboratory studies today show white count of 10, hemoglobin 14, hematocrit 42, and a platelet count of 296,000. Differential count shows 63% neutrophils, 17% lymphocytes, and 11% monocytes. Chemistry profile shows normal electrolytes with a BUN of 13, creatinine 1.2. and a glucose of 85. His C-reactive protein has fallen slightly further to 13.5. CT scan has not yet been read by the radiologist. I reviewed the images personally. The thickening in the sigmoid colon seems to have diminished somewhat. He still has some areas of air in the mesentery extending down to the base of the mesentery from the wall of the colon, but there does appear to be some fluid accumulating in this area as well. I think this may well represent a developing abscess. There is no evidence of any free air. IMPRESSION: Sigmoid diverticulitis with contained perforation with air in the mesentery now with possible developing abscess. PLAN: I will continue his current antibiotics. He will remain on his liquid diet. I will await the final report from the radiologist. Dr. De León will return tomorrow morning and can review the images and determine with the radiologist if he thinks there is a reason to consider a percutaneous drainage.
[2018-08-09] MEDS: metroNIDAZOLE (FLAGYL) 500 MG TAB PO SCH ×2 (13:52→22:02)
[2018-08-09 16:00] VITALS: BP 127/80
[2018-08-09] MEDS ORDERED: SLF 3 ML SYR IV PRN (17:45)
[2018-08-09 20:00] VITALS: BP 122/80
[2018-08-09] MEDS: SLF 3 ML SYR IV SCH (22:02)
[2018-08-10 04:30] VITALS: BP 110/73
[2018-08-10] MEDS: metroNIDAZOLE (FLAGYL) 500 MG TAB PO SCH (05:20)
[2018-08-10] MEDS: CIPROFLOXACIN 500 MG TAB PO SCH (05:20)
[2018-08-10] MEDS: SLF 3 ML SYR IV SCH (05:21)
[2018-08-10 08:00] VITALS: BP 121/78
[2018-08-10] MEDS: BREO ELLIPTA INH SCH (08:26)
[2018-08-10] MEDS ORDERED: CIPR-249 PO (08:38)
[2018-08-10] MEDS ORDERED: FLAG500T PO (08:38)
--- NOTE | 2018-08-10 08:45 | DS.PDOC ---
Discharge Summary General Date of Admission Aug 03, 2018 at 16:10 Date of Discharge August 11, 2018 Discharge Summary PROCEDURES PERFORMED DURING STAY: None. ADMITTING DIAGNOSES: 1. Acute Diverticulitis with lozalized perforation 2. Fever. DISCHARGE DIAGNOSES: 1. Acute Diverticulitis with Localized Perforation improved 2. Fever resolved. COMPLICATIONS/CHIEF COMPLAINT: Diverticulitis Large Intestine. HISTORY OF PRESENT ILLNESS: . HOSPITAL COURSE: . DISCHARGE MEDICATIONS: Please see below. ALLERGIES: Please see below. PHYSICAL EXAMINATION ON DISCHARGE: VITAL SIGNS: Please see below. GENERAL: HEENT: NECK: CARDIOVASCULAR EXAMINATION: RESPIRATORY EXAMINATION: ABDOMINAL EXAMINATION: EXTREMITIES: SKIN: NEUROLOGICAL EXAMINATION: PSYCHIATRIC EXAMINATION: LABORATORY DATA: Please see below. IMAGING: CT Scan of the abdomen and pelvis PROGNOSIS: good ACTIVITY: As tolerated. DIET: low residue diet for another week or until symptoms fully resolved then high fiber diet DISCHARGE PLAN: Follow up with me in two weeks, Return to clinic earlier if with recurrence of symptoms, fever, abdominal pain DISPOSITION: . DISCHARGE INSTRUCTIONS: 1. as above 2. follow up in 2 weeks. ITEMS TO FOLLOWUP ON ON OUTPATIENT: 1. symptom check 2. schedule for colonoscopy at a later date. DISCHARGE CONDITION: Improved. TIME SPENT ON DISCHARGE: Greater than 30 minutes. Vital Signs/I&Os Vital Signs Date Time Temp Pulse Resp B/P (MAP) Pulse Ox O2 Delivery O2 Flow Rate FiO2 08/10/18 04:30 97.0 60 18 110/73 (85) 97 I&O- Last 24 Hours up to 6 AM 08/10/18 06:00 Intake Total 1320 ml Output Total 800 ml Balance 520 ml Laboratory Data Labs 24H Laboratory Tests 2 08/10/18 06:26: C-Reactive Protein, Quantitative 4.34H Microbiology Microbiology 08/03/18 Blood Culture - Final, Complete NO GROWTH AFTER 5 DAYS 08/03/18 Blood Culture - Final, Complete NO GROWTH AFTER 5 DAYS Discharge Medications Scheduled Cetirizine HCl (Cetirizine HCl) 10 Mg Tablet, 10 MG PO DAILY, (Reported) Ciprofloxacin HCl (Cipro) 500 Mg Tablet, 500 MG PO BID@ Fluoxetine Hcl (Fluoxetine HCl) 20 Mg Capsule, 40 MG PO DAILY, (Reported) Fluticasone Propionate (Flonase Allergy Relief) 9.9 Ml [place].susp, 1 SPRAY NA DAILY, (Reported) Fluticasone/Vilanterol (Breo Ellipta 100-25 Mcg INH) 1 Each Blst.w.dev, 1 PUFF PO DAILY, (Reported) Metronidazole (Flagyl) 500 Mg Tablet, 500 MG PO Q8H Scheduled PRN Acetaminophen (Tylenol) 325 Mg Tablet, 1,300 MG PO BID PRN for PAIN, (Reported) Allergies Coded Allergies: No Known Allergies (Unverified , 08/03/18) PHI WYNNE MD Aug 10, 2018 08:45
[2018-08-10] MEDS: ENOXAPARIN 40 MG/0.4 ML SYRINGE (J1650) SC SCH (09:00)
[2018-08-10] MEDS: FLUoxetine 20 MG CAP PO SCH (09:01)
== END 2018-08-10 10:45 | disposition home or self-care (01) | DRG 244 ==
LOC: M ED 13:06 → M ED INP 16:10 → M PED 16:40
PROVIDERS: ADMIT Surgery; ATTEND Surgery
DX: K57.20 Diverticulitis of large intestine with perforation and abscess without bleeding (principal); F32.9 Major depressive disorder, single episode, unspecified; Z79.899 Other long term (current) drug therapy; G47.33 Obstructive sleep apnea (adult) (pediatric); J45.20 Mild intermittent asthma, uncomplicated; F41.9 Anxiety disorder, unspecified

== ENCOUNTER 2018-09-08 10:00 | Day surgery (SDC) | payer BC ==
[~2018-09-08] VITALS: Ht 180.3 cm; Wt 0.9 kg
[~2018-09-08 10:00] MED LIST changes: +CIPR-249 PO; +FLAG500T PO; +NS 1,000 ML IV ONE
--- NOTE | 2018-09-08 11:22 | ROOR ---
Patient Name: Alexsander Mills Procedure Date: 09/08/2018 10:47 AM Date of : 1970 Age: 48 Room: [facility] Gender: Male Note Status: Finalized Procedure: Colonoscopy Indications: Suspected diverticulitis, Follow-up of diverticulitis Providers: Rishi De León MD Referring MD: BETH Campuzano Requesting Provider: Medicines: Monitored Anesthesia Care Complications: No immediate complications. Procedure: Pre-Anesthesia Assessment: - Prior to the procedure, a History and Physical was performed, and patient medications and allergies were reviewed. The patient is competent. The risks and benefits of the procedure and the sedation options and risks were discussed with the patient. All questions were answered and informed consent was obtained. Patient identification and proposed procedure were verified by the physician, the nurse and the anesthesiologist in the procedure room. Mental Status Examination: alert and oriented. Airway Examination: normal oropharyngeal airway and neck mobility. Respiratory Examination: clear to auscultation. CV Examination: normal. Prophylactic Antibiotics: The patient does not require prophylactic antibiotics. Prior Anticoagulants: The patient has taken no previous anticoagulant or antiplatelet agents. ASA Grade Assessment: II - A patient with mild systemic disease. After reviewing the risks and benefits, the patient was deemed in satisfactory condition to undergo the procedure. The anesthesia plan was to use monitored anesthesia care (MAC). Immediately prior to administration of medications, the patient was re-assessed for adequacy to receive sedatives. The heart rate, respiratory rate, oxygen saturations, blood pressure, adequacy of pulmonary ventilation, and response to care were monitored throughout the procedure. The physical status of the patient was re-assessed after the procedure. The Colonoscope was introduced through the anus and advanced to the cecum, identified by appendiceal orifice and ileocecal valve. The colonoscopy was performed without difficulty. The patient tolerated the procedure well. The quality of the bowel preparation was good. Findings: The perianal and digital rectal examinations were normal. Few small diverticulosis away from area of previous/ongoing inflammation at the distal sigmoid colon. I did not appreciate any significant no.,size of sigmoid colon at area of inflammation. An area of mildly congested mucosa was found in the sigmoid colon. This was biopsied with a cold forceps for histology. Localized area of congestion, left over inflammation, presence of exudates at a lateral wall of the distal sigmoid colon, mucosa friable on biopsy. Multiple biopsies taken. No noticeable diverticula at that area The retroflexed view of the distal rectum and anal verge was normal and showed no anal or rectal abnormalities. Impression: - Diverticulosis in the sigmoid colon and in the descending colon. - Congested mucosa in the sigmoid colon. Biopsied. - The distal rectum and anal verge are normal on retroflexion view. Recommendation: - Discharge patient to home (ambulatory). - Await pathology results. Rishi De León MD Rishi De León MD 09/08/2018 11:21:29 AM Electronically signed by Rishi De León MD Number of Addenda: 0 Note Initiated On: 09/08/2018 10:47 AM Estimated Blood Loss: Estimated blood loss was minimal.
[2018-09-08 11:35] VITALS: BP 114/75
== END 2018-09-08 11:48 | disposition home or self-care (01) ==
LOC: M OPP 10:00
PROVIDERS: ATTEND Surgery
DX: K63.89 Other specified diseases of intestine (principal); K57.30 Diverticulosis of large intestine without perforation or abscess without bleeding; K57.32 Diverticulitis of large intestine without perforation or abscess without bleeding; Z79.899 Other long term (current) drug therapy

== ENCOUNTER 2019-01-16 01:19 | Inpatient (IN) | payer BC, OTHER ==
[~2019-01-16] VITALS: Ht 180.3 cm; Wt 104.5 kg
[~2019-01-16 01:19] MED LIST changes: -ALL10TAB28 PO; +ALL10TAB29 PO; -NS 1,000 ML IV ONE
[2019-01-16] MEDS ORDERED: ALBU8.5H INH (01:23)
[2019-01-16 02:09] LABS: BASO % 0.3 % (0.0-1.0); EOS # 0.5 10^3/uL (0.0-0.5); EOS % 3.4 % (0.0-3.0); HEMATOCRIT 42.6 % (42.0-52.0); HEMOGLOBIN 14.4 g/dl (13.5-17.5); LYMPH % 14.3 % (24.0-44.0); MEAN CORPUSCULAR HEMOGLOBIN 28.6 pg (27.0-33.0); MEAN CORPUSCULAR HGB CONC 33.8 g/dl (32.0-36.5); MEAN CORPUSCULAR VOLUME 84.7 fl (80.0-96.0); MONO # 0.6 10^3/uL (0.0-0.8); MONO % 4.6 % (0.0-5.0); NEUTROPHILS # 10.8 10^3/uL (1.5-8.5); PLATELET COUNT, AUTOMATED 188 10^3/uL (150-450); RED BLOOD COUNT 5.03 10^6/uL (4.30-6.10)
[2019-01-16] MEDS ORDERED: MORPHINE 4 MG/ML 1ML VIAL/SYRINGE (J2270) IV ONE ×2 (02:15→06:45)
[2019-01-16 02:29] LABS: INR 1.02; PARTIAL THROMBOPLASTIN TIME 28.3 SECONDS (25.0-38.4); PROTHROMBIN TIME 13.1 SECONDS (11.8-14.0)
[2019-01-16 02:35] LABS: ALBUMIN 3.8 GM/DL (3.2-5.2); BILIRUBIN,DIRECT 0.1 MG/DL (0.0-0.2); BILIRUBIN,TOTAL 0.4 MG/DL (0.2-1.0); CALCIUM LEVEL 8.3 MG/DL (8.5-10.1); CREATININE FOR GFR 1.51 MG/DL (0.70-1.30); GLOMERULAR FILTRATION RATE 53.2 (>60); POTASSIUM SERUM 4.2 MEQ/L (3.5-5.1); TOTAL PROTEIN 6.5 GM/DL (6.4-8.2)
[2019-01-16] MEDS ORDERED: NS 1,000 ML IV ONE (02:45)
[2019-01-16] MEDS ORDERED: ISOVUE-370 76% 100ML VIAL (Q9967) As Ordered ONE (02:45)
--- NOTE | 2019-01-16 04:18 | REPVR ---
PROCEDURE INFORMATION: Exam: CT Abdomen And Pelvis With Contrast Exam date and time: 01/16/2019 3:14 AM Age: 48 years old Clinical history: Abdominal pain; Localized; Left lower quadrant (llq); Additional info: Llq pain TECHNIQUE: Imaging protocol: Computed tomography of the abdomen and pelvis with intravenous contrast. Radiation optimization: All CT scans at this facility use at least one of these dose optimization techniques: automated exposure control; mA and/or kV adjustment per patient size (includes targeted exams where dose is matched to clinical indication); or iterative reconstruction. Contrast material: ISOVUE 370; Contrast volume: 100 ml; Contrast route: IV; COMPARISON: CT ABD PELVIS WITH CONTRAST 08/08/2018 7:59 AM FINDINGS: Lungs: There is mild dependent atelectasis in both lower lobes. Heart: No cardiomegaly. No pericardial effusion. Liver: Unremarkable. No liver lesion is seen. The contour of the liver is smooth. No hepatomegaly is noted. Gallbladder and bile ducts: No calcified gallstones are seen. No gallbladder wall thickening, pericholecystic fluid, or pericholecystic inflammatory changes are identified. No dilation of the intrahepatic or extrahepatic bile ducts is noted. Pancreas: Normal. No ductal dilation. Spleen: Normal. No splenomegaly. Adrenals: Normal. No mass. Kidneys and ureters: The kidneys are normal in appearance. No renal lesion is identified. No calculi are seen in the kidneys or ureters. There is no hydronephrosis or hydroureter. There are no wedge-shaped areas of low attenuation in the kidneys to suggest pyelonephritis. There is no renal abscess or perinephric fluid collection. Stomach and bowel: There is colonic diverticulosis and there is a large diverticulum arising from the proximal sigmoid colon, with inflammatory fat stranding around this particular diverticulum, which is compatible with sigmoid diverticulitis. 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 There is a 19 mm x 9 mm x 10 mm rim-enhancing collection of gas and fluid abutting the wall of the proximal sigmoid colon, which is compatible with an abscess that forms a fistulous connection with the fistula between the large proximal sigmoid diverticulum and loop of ileum described above (images 46-52 of the coronal series 202 and images 76-81 of the sagittal series 203). Appendix: No evidence for appendicitis. Intraperitoneal space: No free air. Retroperitoneal space: Unremarkable. No fluid collection. No mass. Vasculature: The abdominal aorta is patent, normal in caliber, and there is no dissection. The renal arteries, celiac artery, superior mesenteric artery, inferior mesenteric artery, iliac arteries, and common femoral arteries are patent. The portal veins, splenic vein, superior mesenteric vein, inferior mesenteric vein, and renal veins are patent. Lymph nodes: Normal. No enlarged lymph nodes. Bladder: Unremarkable. No calculi or masses are noted in the bladder. Reproductive: The prostate gland and seminal vesicles are unremarkable. Bones/joints: The imaged bony structures are intact. There is no suspicious osteolytic or osteoblastic lesion. Incidental note is made of a small bone island in the right femoral head, which is unchanged compared to the prior CT on 08/08/2018. There are degenerative changes involving the lower lumbar spine. Soft tissues: Unremarkable. No hernia. 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 Electronically signed by: Tomer Lazaro On 01/16/2019 04:17:55 AM
[2019-01-16] MEDS ORDERED: PIPERACILLIN/TAZOBACTAM SOD 3.375 GM in D5W MINI-BAG PLUS 50 ML IV ONE (04:30)
[2019-01-16] MEDS ORDERED: metroNIDAZOLE 500 MG in IV 1 EA IV ONE (04:30)
[2019-01-16] MEDS ORDERED: METOCLOPRAMIDE INJ 10MG/2ML VIAL (J2765) IV PRN (09:00)
[2019-01-16] MEDS ORDERED: MORPHINE 2 MG/ML 1ML VIAL (J2270) IV PRN (09:00)
[2019-01-16] MEDS ORDERED: ONDANSETRON 4MG/2ML VIAL (J2405) IV PRN (09:00)
[2019-01-16 12:42] VITALS: BP 125/77
[2019-01-16] MEDS: FLUoxetine 20 MG CAP PO SCH (13:00)
[2019-01-16] MEDS: DOCUSATE SODIUM 100 MG CAP PO SCH ×2 (13:00→21:06)
[2019-01-16] MEDS: CETIRIZINE (ZyrTEC) 10 MG TAB PO SCH (13:00)
[2019-01-16] MEDS: PIPERACILLIN/TAZOBACTAM SOD 3.375 GM in D5W MINI-BAG PLUS 50 ML IV SCH ×3 (13:00→21:06)
[2019-01-16] MEDS: LR 1,000 ML IV SCH ×2 (13:01→22:25)
[2019-01-16] MEDS: NORCO, ANEXSIA 5/325MG TABLET (HYDROcodone/ACETAMINOPHEN) PO PRN ×2 (13:30→21:10)
[2019-01-16 14:00] VITALS: BP 128/77
[2019-01-16 18:00] VITALS: BP 115/69
[2019-01-16] MEDS: FLUTICASONE PROP 0.05% NASAL SPRAY 16 GM (FLONASE) SCH (18:10)
[2019-01-16 20:00] VITALS: BP 128/79
[2019-01-17] VITALS: BP 109/70
[2019-01-17] MEDS: PIPERACILLIN/TAZOBACTAM SOD 3.375 GM in D5W MINI-BAG PLUS 50 ML IV SCH ×4 (03:55→21:46)
[2019-01-17] MEDS: NORCO, ANEXSIA 5/325MG TABLET (HYDROcodone/ACETAMINOPHEN) PO PRN ×2 (03:59→08:52)
[2019-01-17 04:00] VITALS: BP 128/77
--- NOTE | 2019-01-17 07:20 | HPE ---
DATE OF ADMISSION: 01/16/2019 REASON FOR ADMISSION: Acute sigmoid diverticulitis. HISTORY OF PRESENT ILLNESS: The patient is a 48-year-old male who presented to the emergency department shortly after 1 o'clock in the morning on January 16. He reports that he had noted the sudden onset of severe fairly diffuse mid to lower abdominal pain. He denied any nausea or vomiting. He has a history of fairly severe sigmoid diverticulitis with abscess formation back in July. At that point he gradually resolved with antibiotic therapy. He has done well since then. He has not had any definite fevers or chills since this onset of pain. He presented to the emergency department where he underwent evaluation. He was found to have a mild elevation of his white blood cell count to 14,000 with 77% neutrophils. His chemistry profile showed a BUN of 23 and creatinine of 1.5, it was otherwise unremarkable. He then had a CT scan obtained which showed a large diverticulum in the sigmoid colon with some significant inflammatory changes. The radiologist felt there was evidence for a fistulous connection between the diverticulum and an adjacent loops of ileum. Because of his persistent pain with these changes of acute diverticulitis noted by CT, he is admitted for antibiotic treatment and pain management. ALLERGIES: None known. MEDICATIONS: He is usually taking: - cetirizine 10 mg daily - fluoxetine 40 mg p.o. daily - Flonase allergy relief 1 spray daily - Breo Ellipta 100/25 1 puff p.o. daily. MEDICAL HISTORY: Significant for: A reported history of asthma, though he has had no recent problems. He has obstructive sleep apnea. He has a past history of diverticulitis. He has a history of anxiety and depression. SURGICAL HISTORY: Significant for a previous colonoscopy. SOCIAL HISTORY: The patient is . He denies any tobacco use and drinks alcohol occasionally. FAMILY HISTORY: Significant for father with hypertension and some sort of the hole in the heart. His mother has had hypertension and hyperlipidemia. REVIEW OF SYSTEMS: Reveals no history of chest pain, palpitations, shortness of breath. He has had no recent wheezing. He denies any cough or sputum production. He denies any melena or hematochezia. He has no history of peptic ulcer disease, hepatitis or pancreatitis. He denies any dysuria or hematuria. He has no bone or joint issues. PHYSICAL EXAMINATION: Physical exam reveals a pleasant man lying quietly on the ER stretcher. He appears somewhat uncomfortable with movement. His most recent vital signs showed a temperature of 98.9, pulse of 74, respirations of 17 and blood pressure of 101/66. Room air oxygen saturation was normal. Skin is warm and dry. Sclerae are anicteric. Mucous membranes are moist. Neck is supple without mass. Heart exam shows a regular rate and rhythm. The lungs are clear. The abdomen is perhaps mildly obese. He has no evident scars. Does have bowel sounds present. There is no tympany to percussion. There is only some very mild tenderness to percussion. On palpation he has some tenderness particularly in the left lower quadrant and left midabdomen which I would described as moderate. No masses appreciated. There is no evident hernia. Lower extremities are without edema and he has intact radial and pedal pulses. Laboratory studies today include a CBC showing a white count of 14,000 with a hemoglobin of 14, hematocrit of 43 and platelet count of 188,000. The differential count showed 77% neutrophils, 14% lymphocytes and 5% monocytes. Chemistry profile showed a sodium of 142, potassium 4.2, chloride 108, CO2 of 28, BUN of 23, creatinine 1.5 and glucose of 126. His liver function tests are normal with a total protein of 6.5 and albumin of 3.8. Lipase is normal at 130. He had a PT/INR and PTT that were normal. Urinalysis was not suggestive of a urinary tract infection. He had a CT scan of the abdomen and pelvis. This revealed diverticulosis which particularly involves the descending and sigmoid colon. There was no free air or free fluid. He had what appeared to be a fairly large stool-filled diverticulum in the proximal sigmoid colon. There was some inflammatory change noted surrounding this. There was some stranding of inflammatory change toward an adjacent loop of small bowel, though a definite fistula was not seen. No other acute findings were noted. IMPRESSION: 1. Acute sigmoid diverticulitis with possible fistula formation. 2. Obstructive sleep apnea. 3. Anxiety and depression. 4. Mild asthma. PLAN: The patient will be admitted to the hospital for intravenous antibiotics and pain management. He has been started on Zosyn in the emergency department and this will be continued. As there is no sign of perforation I will allow him to take some clear liquids as tolerated and will keep him on some maintenance IV fluid as well. I reviewed several CT scans from his July hospital stay and he had on that occasion some significant air that had penetrated into the mesentery of the sigmoid colon consistent with a contained perforation. These areas became more inflamed and suggested several abscesses. He ultimately responded to antibiotic therapy and improved. He had a colonoscopy in August by Dr. De León and this showed some diverticulosis that did not seem to be located directly in the area where he had had his recent inflammatory changes at that time. Because this is now his second episode of diverticulitis in just 5 months that it may be reasonable, once he has healed from this, to consider a sigmoid colectomy. This will need to be discussed further. We will see how the patient feels in the morning and whenever he is tolerating liquids well and his pain is manageable with oral medications, he could be discharged for outpatient antibiotic therapy and followup as an outpatient.
[2019-01-17 08:02] LABS: BLOOD UREA NITROGEN 14 MG/DL (7-18); CALCIUM LEVEL 8.7 MG/DL (8.5-10.1); CARBON DIOXIDE LEVEL 27 MEQ/L (21-32); CHLORIDE LEVEL 109 MEQ/L (98-107); CREATININE FOR GFR 1.27 MG/DL (0.70-1.30); GLOMERULAR FILTRATION RATE > 60.0 (>60); GLUCOSE, FASTING 95 MG/DL (70-100); SODIUM LEVEL 141 MEQ/L (136-145)
[2019-01-17] MEDS: FLUoxetine 20 MG CAP PO SCH (08:48)
[2019-01-17] MEDS: CETIRIZINE (ZyrTEC) 10 MG TAB PO SCH (08:48)
[2019-01-17] MEDS: DOCUSATE SODIUM 100 MG CAP PO SCH ×2 (08:49→21:46)
[2019-01-17] MEDS: FLUTICASONE PROP 0.05% NASAL SPRAY 16 GM (FLONASE) SCH (08:49)
[2019-01-17 09:17] LABS: BASO % 0.3 % (0.0-1.0); EOS # 0.5 10^3/uL (0.0-0.5); EOS % 4.4 % (0.0-3.0); HEMATOCRIT 41.5 % (42.0-52.0); HEMOGLOBIN 13.9 g/dl (13.5-17.5); LYMPH # 1.9 10^3/uL (1.5-5.0); LYMPH % 18.6 % (24.0-44.0); MEAN CORPUSCULAR HEMOGLOBIN 28.4 pg (27.0-33.0); MEAN CORPUSCULAR HGB CONC 33.5 g/dl (32.0-36.5); MEAN CORPUSCULAR VOLUME 84.9 fl (80.0-96.0); MONO # 0.9 10^3/uL (0.0-0.8); MONO % 8.9 % (0.0-5.0); NEUTROPHILS % 67.5 % (36.0-66.0); PLATELET COUNT, AUTOMATED 201 10^3/uL (150-450); RED BLOOD COUNT 4.89 10^6/uL (4.30-6.10); WHITE BLOOD COUNT 10.3 10^3/uL (4.0-10.0)
[2019-01-17 10:54] VITALS: BP 123/76
[2019-01-17 14:24] VITALS: BP 118/70
[2019-01-17] MEDS: ACETAMINOPHEN TAB 650MG DOSE (2X325MG) PO PRN (15:20)
[2019-01-17 18:14] VITALS: BP 114/73
[2019-01-17 22:00] VITALS: BP 131/77
[2019-01-18 02:00] VITALS: BP 111/69
[2019-01-18] MEDS: ACETAMINOPHEN TAB 650MG DOSE (2X325MG) PO PRN (02:09)
[2019-01-18] MEDS: PIPERACILLIN/TAZOBACTAM SOD 3.375 GM in D5W MINI-BAG PLUS 50 ML IV SCH ×2 (04:06→10:00)
[2019-01-18 06:00] VITALS: BP 99/58
[2019-01-18] MEDS: FLUoxetine 20 MG CAP PO SCH (08:09)
[2019-01-18] MEDS: DOCUSATE SODIUM 100 MG CAP PO SCH (08:09)
[2019-01-18] MEDS: CETIRIZINE (ZyrTEC) 10 MG TAB PO SCH (08:10)
[2019-01-18] MEDS: FLUTICASONE PROP 0.05% NASAL SPRAY 16 GM (FLONASE) SCH (08:11)
[2019-01-18] MEDS ORDERED: FLAG500T PO (08:40)
[2019-01-18] MEDS ORDERED: CIPR500T3 PO (08:40)
[2019-01-18] MEDS ORDERED: INFLUENZA QUADRIVALENT PF VACCINE 0.5ML SYRINGE (90686) IM ONE (09:00)
--- NOTE | 2019-01-18 14:12 | IPN ---
DATE: 01/17/2019 HISTORY: The patient was admitted yesterday for sudden onset of severe pain in the lower abdomen with CT findings showing a large sigmoid diverticulum possibly with a small adjacent abscess with inflammatory changes. He was started on Zosyn for antibiotic coverage and admitted for pain management. VITAL SIGNS: Show that the patient has been afebrile since admission. His pulse is in the 70s generally. His blood pressure is good and his room air oxygen saturations are normal. INTAKE AND OUTPUT: Show that yesterday he had 2300 in with 400 mL of urine recorded, but several additional voids noted. PHYSICAL EXAMINATION: The patient is alert and appears fairly comfortable at rest. The abdomen is mildly obese. He has bowel sounds present. He has some tenderness on percussion across the lower abdomen, most pronounced about at the midline to just right of the midline. There is tenderness on palpation basically across the entire lower abdomen. LABORATORY STUDIES: Show a white count of 10,000 today which is down from 14. Hemoglobin is 14, hematocrit is 42 and platelet count is 201,000. Differential count shows 68% neutrophils, 19% lymphocytes, 9% monocytes and 4% eosinophils. Chemistry profile shows normal electrolytes with the exception of a minimal elevation of the chloride to 109. BUN, creatinine and glucose were all normal. IMPRESSION: The patient continues to have some tenderness in the lower abdomen. He does report that he has pain that waxes and wanes with occasional sharper episodes. He is tolerating liquids. PLAN: The patient will be continued on his current diet of liquids. I will saline lock his IV fluid. I will continue his IV antibiotics in the hospital and hope that he will be ready for discharge in the next 1-2 days. ZULEYKA
== END 2019-01-18 11:00 | disposition home or self-care (01) | DRG 244 ==
LOC: M ED 01:19 → M ED INP 08:52 → M MS4PR 12:31
PROVIDERS: ADMIT Surgery; ATTEND Surgery
DX: K57.20 Diverticulitis of large intestine with perforation and abscess without bleeding (principal); K63.2 Fistula of intestine; Z79.899 Other long term (current) drug therapy; J45.909 Unspecified asthma, uncomplicated; F41.9 Anxiety disorder, unspecified; F32.9 Major depressive disorder, single episode, unspecified; G47.33 Obstructive sleep apnea (adult) (pediatric)

== ENCOUNTER → 2019-03-28 | Outpatient (CLI) | payer OTHER ==
[~2019-03-28] MED LIST changes: +ALBU8.5H INH; +CIPR500T3 PO; +GASTROGRAFIN SOLUTION 30ML (Q9963) As Ordered ONE; +ISOVUE-370 76% 100ML VIAL (Q9967) As Ordered ONE
--- NOTE | 2019-03-29 08:57 | REP ---
Clinical: Follow up diverticulitis. Technique: Axial contrast enhanced images of the pelvis using oral (per protocol) and 100 ml Isovue 370 intravenous contrast material with coronal and sagittal re-formations. Comparison: 01/16/2019. Findings: Small focal area of residual stranding and mesenteric thickening adjacent to the focal midsigmoid colon with mild mural thickening (images 33 - 40) now likely represents chronic changes related to the prior acute diverticulitis. No evidence for acute pathology appreciated. No ascites. No free air. No adenopathy. Further evaluation the pelvis demonstrates normal bladder and prostate/seminal vesicles. Surrounding musculoskeletal structures are relatively normal. Impression: Presumed chronic post inflammatory changes with granulation tissue and mild scarring at the site of prior mid sigmoid diverticulitis. No definite evidence to suggest acute process. Clinical correlation is recommended. Electronically Signed by Marky Fernandes MD 03/29/2019 08:49 A
== END ==
LOC: M RAD 08:31
PROVIDERS: ATTEND Surgery
DX: K57.10 Diverticulosis of small intestine without perforation or abscess without bleeding (principal)
CPT/HCPCS: 72193; Q9963; Q9967

== ENCOUNTER → 2019-07-22 | Outpatient (CLI) | payer OTHER ==
[~2019-07-22] MED LIST changes: -FLUO20CA19 PO; +FLUO20CA22 PO; -GASTROGRAFIN SOLUTION 30ML (Q9963) As Ordered ONE; -ISOVUE-370 76% 100ML VIAL (Q9967) As Ordered ONE
--- NOTE | 2019-07-22 12:31 | REP ---
REASON: Trauma 2 days ago. PRIORS: None. Tiny flake-like ossific densities are seen lateral to the base of the talus. There is associated soft tissue swelling. There is a smoothly marginated well-corticated ossific density seen just distal to the distal fibular tip. There is a small plantar calcaneal heel spur. IMPRESSION: 1. There is a subtle lateral talar base avulsion fracture seen with soft tissue swelling. 2. Chronic changes as described above. Electronically Signed by Montrell Hair DO 07/22/2019 01:04 P
== END ==
LOC: M LRY 11:07
PROVIDERS: ATTEND Physician Assistant
DX: S92.155A Nondisplaced avulsion fracture (chip fracture) of left talus, initial encounter for closed fracture (principal); X58.XXXA Exposure to other specified factors, initial encounter; Y92.89 Other specified places as the place of occurrence of the external cause

== ENCOUNTER → 2020-05-15 | Outpatient (REF) | payer OTHER ==
[~2020-05-15] MED LIST changes: -ALL10TAB29 PO; +CETI-24 PO
[2020-05-15 13:34] LABS: BASO # 0.1 10^3/uL (0.0-0.2); BASO % 1.2 % (0.0-1.0); EOS # 0.6 10^3/uL (0.0-0.5); EOS % 9.1 % (0.0-3.0); HEMATOCRIT 47.2 % (42.0-52.0); HEMOGLOBIN 15.9 g/dl (13.5-17.5); LYMPH # 2.1 10^3/uL (1.5-5.0); LYMPH % 29.9 % (24.0-44.0); MEAN CORPUSCULAR HEMOGLOBIN 28.2 pg (27.0-33.0); MEAN CORPUSCULAR HGB CONC 33.7 g/dl (32.0-36.5); MEAN CORPUSCULAR VOLUME 83.8 fl (80.0-96.0); MONO # 0.6 10^3/uL (0.0-0.8); MONO % 9.2 % (2.0-8.0); NEUTROPHILS # 3.5 10^3/uL (1.5-8.5); NEUTROPHILS % 49.7 % (36.0-66.0); PLATELET COUNT, AUTOMATED 244 10^3/uL (150-450); RED BLOOD COUNT 5.63 10^6/uL (4.30-6.10); WHITE BLOOD COUNT 6.9 10^3/uL (4.0-10.0)
[2020-05-15 14:16] LABS: ALBUMIN 4.3 GM/DL (3.2-5.2); ALT/SGPT 118 U/L (12-78); BILIRUBIN,TOTAL 0.5 MG/DL (0.2-1.0); BLOOD UREA NITROGEN 13 MG/DL (7-18); CARBON DIOXIDE LEVEL 27 MEQ/L (21-32); CHLORIDE LEVEL 107 MEQ/L (98-107); CHOLESTEROL LEVEL 198 MG/DL (<200); CREATININE FOR GFR 1.09 MG/DL (0.70-1.30); GLOMERULAR FILTRATION RATE > 60.0 (>60); GLUCOSE, FASTING 78 MG/DL (70-100); HDL CHOLESTEROL 33 MG/DL (>40); LDL CHOLESTEROL 138 MG/DL (<100); NON-HDL-C 165 MG/DL; POTASSIUM SERUM 4.5 MEQ/L (3.5-5.1); SODIUM LEVEL 140 MEQ/L (136-145); THYROID STIMULATING HORMONE 0.866 uIU/ML (0.358-3.740); TOTAL 25(OH) VITAMIN D 23.1 NG/ML (30.0-100.0); TOTAL PROTEIN 7.2 GM/DL (6.4-8.2); TRIGLYCERIDES LEVEL 134 MG/DL (<150)
== END ==
LOC: M SFHCADAM 08:38
PROVIDERS: ATTEND Physician Assistant Medical
DX: J45.20 Mild intermittent asthma, uncomplicated (principal); F34.1 Dysthymic disorder; E55.9 Vitamin D deficiency, unspecified; E66.9 Obesity, unspecified

== ENCOUNTER → 2020-05-28 | Outpatient (CLI) | payer OTHER ==
--- NOTE | 2020-05-28 08:51 | REP ---
INDICATION: ELEVATED LFTS COMPARISON: 03/04/2016 TECHNIQUE: Real time curiel scale ultrasound examination using curved array transducer. FINDINGS: The liver is diffusely hyperechoic suggesting fatty infiltration with few areas of presumed focal fatty sparing. No hepatic lesions are identified by ultrasound. The pancreas is incompletely evaluated due to interposed bowel gas. The gallbladder is without gallstones, wall thickening, or pericholecystic fluid. No biliary ductal dilatation is appreciated and the common bile duct measures 3.8 mm diameter. The right kidney is normal in reniform shape without hydronephrosis and measures 10.2 x 6.0 x 4.5 cm. No ascites in the visualized right upper quadrant. IMPRESSION: Hepatosteatosis. <Electronically signed by Marky Fernandes > 05/28/20 [id number]
== END ==
LOC: M RAD 08:01
PROVIDERS: ATTEND Physician Assistant Medical
DX: R74.01 Elevation of levels of liver transaminase levels (principal)

== ENCOUNTER → 2020-11-02 | Outpatient (REF) | payer OTHER ==
[2020-11-02 14:27] LABS: HEPATITIS A ANTIBODY IGM NEGATIVE (NEGATIVE); HEPATITIS B CORE ANTIBODY IGM NEGATIVE (NEGATIVE); HEPATITIS B SURFACE ANTIGEN NEGATIVE (NEGATIVE); HEPATITIS C VIRUS ABY INDEX < 0.0 INDEX (<0.8)
== END ==
LOC: M SFHCADAM 09:21
PROVIDERS: ATTEND Physician Assistant Medical
DX: R79.89 Other specified abnormal findings of blood chemistry (principal)

== ENCOUNTER 2021-01-16 14:38 | Emergency (ER) | payer OTHER ==
[~2021-01-16] VITALS: Ht 180.3 cm; Wt 108.1 kg
--- OUTSIDE RECORDS SUMMARY | 2021-01-16 14:45 | CCD ---
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 20 Active confirmed [id number] Problem Dysthymia F34.1 Active confirmed 50971181 Problem CHALINO (obstructive sleep apnea) G47.33 Active confirm ed [id number] Problem Vitamin D deficiency E55.9 Active confirmed [id number] ALLERGIES No Known Allergies ENCOUNTERS from 1972 to 2020-11-07 Encounter Location Date Provider Diagnosis [address] [place] [address] 10 Oct, 2020 Nancy Higginbotham Fatty liver K76.0 ; Elevated LFTs R79.89 ; Dysthymia F34.1 ; Mild intermittent asthma without complication J45.20 ; CHALINO (obstructive sleep apnea) G47.33 ; Vitamin D deficiency E55.9 and Obesity (BMI 30.0-34.9) E66.9 IMMUNIZATIONS Vaccine Route Administration Date Status COVID-19 dose #1 given elsewhere Unspecified Unknown Apr Administered Influenza 6mo & up Fluzone IM Intramuscular Jan 19, 2018 Admi nistered Influenza 6mo & up Fluzone IM Intramuscular Dec 24, 2015 Admi nistered SOCIAL HISTORY Tobacco Use: Social History Observation Description Date Details (start date - stop date) Never Smoker Sex Assigned At : Social History Observation Description Sex Assigned At Unknown Education: Question Answer Notes Level of Education: Not Finished College Audit Question Answer Notes Total Score: 1 Interpretation: Alcohol Education Language: Question Answer Notes Languages spoken: Estonian Sexual Hx: Question Answer Notes Had sex in the last 12 months (vaginal, oral, or anal)? Yes with Women only Use protection? No Drug and Alcohol Question Answer Notes Total Score: 0 Interpretation: No problems reported Alcohol Screening: Question Answer Notes Did you have a drink containing alcohol in the past year? Ye s Points 1 Interpretation Negative How often did you have six or more drinks on one occas ion in the past year? Never (0 points) How many drinks did you have on a typica l day when you were drinking in the past year? 1 or 2 (0 points) How often did you have a drink containing alcohol in t he past year? Monthly or less (1 point) BMI Care Goal Follow-Up Question Answer Notes Above Normal BMI Follow-Up Dietary management educatio n, guidance, and counseling Tobacco Use: Question Answer Notes Are you a: never smoker REASON FOR REFERRAL No Information VITAL SIGNS Weight 236 lbs Oct, Height 71 in Oct, BMI 32.91 kg/m2 Oct, Heart Rate 65 /min Oct, Respiratory Rate 18 /min Oct, Temperature 98 degrees Fahrenheit Oct, Oximetry 94 Oct, Blood pressure systolic 120 mm Hg Oct, Blood pressure diastolic 88 mm Hg Oct, MEDICATIONS Medication SIG (Take, Route, Frequency, Duration) Notes Start Da te End Date Status Lipitor 40 MG 1 tablet Orally Once a day for 90 days 2020 Active Flonase Allergy Relief 50 MCG/ACT 1 spray in each nost ril Nasally Once a day for 30 day(s) Nov, Active Albuterol Sulfate HFA 108 (90 Base) MCG/ACT 2 puffs as needed Inhalation every 6 hrs for 20 Active Breo Ellipta 100-25 MCG/INH INHALE 1 PUFF BY MOUTH ONCE DAILY for 30 Active Cholecalciferol 50 MCG (2000 UT) 1 tablet Orally Once a day for 90 day(s) Apr, Active ZyrTEC Allergy 10 MG 1 tablet Orally Once a day for 90 day(s) Nov, Active Fluoxetine HCl 20 MG TAKE 2 CAPSULES BY MOUTH EVERY DAY for 90 Active PROCEDURES No Information RESULTS Component Value Reference Range HEPATITIS A ANTIBODY IGM Reviewed date:11/05/2020 10:20:37 Interpretation: Performing Lab:[facility] [address] [facility] [address] , ,[place] [id number] HEPATITIS A ANTIBODY IGM NEGATIVE NEGATIVE HEPATITIS B CORE ANTIBODY IGM Reviewed date:11/05/2020 10:20:37 Interpretation: Performing Lab:[facility] [address] [facility] [address] , ,[place] [id number] HEPATITIS B CORE ANTIBODY IGM NEGATIVE NEGATIVE HEPATITIS B SURFACE ANTIGEN Reviewed date:11/05/2020 10:20:37 Interpretation: Performing Lab:[facility] [address] [facility] [address] , ,[place] [id number] HEPATITIS B SURFACE ANTIGEN NEGATIVE NEGATIVE HEPATITIS C ANTIBODY INDEX Reviewed date:11/05/2020 10:20:37 Interpretation: Performing Lab:[facility] [address] [facility] [address] , ,[place] [id number] HEPATITIS C VIRUS LENORA INDEX < 0.0 <0.8 REASON FOR VISIT 6 month MEDICAL (GENERAL) HISTORY Type Description Date Medical History asthma, mild intermittent Medical History depression/anxiety Medical History CHALINO - compliant with CPAP Medical History allergic rhinitis Medical History 01/11 colnooscopy - [facility], + Divertic ulosis Surgical History No know Surgical history Hospitalization History diverticulitis 2019 Goals Section No Information Health Concerns No Information MEDICAL EQUIPMENT No Information MENTAL STATUS No Information FUNCTIONAL STATUS No Information ASSESSMENTS Encounter Date Diagnosis Assessment Notes Treatment Notes Treatm ent Clinical Notes Oct, Fatty liver (ICD-10 - K76.0) Enc pt to resume lipitor, low fat diet, weight loss. Oct, Elevated LFTs (ICD-10 - R79.89) Oct, Dysthymia (ICD-10 - F34.1) stable moods. 10 Oct, 2020 Mild intermittent asthma without complication (I CD-10 - J45.20) Oct, CHALINO (obstructive sleep apnea) (ICD-10 - G47.33) Wears CPAP consistently. Oct, Vitamin D deficiency (ICD-10 - E55.9) Oct, Obesity (BMI 30.0-34.9) (ICD-10 - E66.9) Pt was counselled on the importance of diet and exercise in maintaining a healthy weight and that patients weight currently poses a health risk. Pt verbalizes understanding PLAN OF TREATMENT Medication Medication Name Sig Start Date Stop Date Fluoxetine HCl 20 MG TAKE 2 CAPSULES BY MOUTH EVERY DAY for 90 Lipitor 40 MG 1 tablet Orally Once a day for 90 days May, Treatment Notes Assessment Notes Clinical Notes Fatty liver Enc pt to resume lipitor, low fat diet, weight loss. Dysthymia stable moods. CHALINO (obstructive sleep apnea) Wears CPAP consistently. Obesity (BMI 30.0-34.9) Pt was counselled on the imp ortance of diet and exercise in maintaining a healthy weight and that patients weight currently poses a health risk. Pt verbalizes understanding Future Test Test Name Order Date Comprehensive Metabolic Profile (CMP) 20210502 LIPID PANEL (CARDIAC RISK) [id number] TSH [id number] VITAMIN D 25-HYDROXY [id number] Next Appt Details BW today, f/u 6 m, BW before Reason: Provider Name:Nancy Higginbotham, 2021-04-05 08:00:00 AM, [address], , [place], [address], Insurance Providers Payer Name Payer Address Payer Phone Insured Name Patient Relati onship to Insured Coverage Start Date Coverage End Date FORMERLY [facility] [employer] [facility] [facility] [address] [facility] [address] BESS LMEON self
--- OUTSIDE RECORDS SUMMARY | 2021-01-16 14:46 | CCD ---
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 Role Phone Feola, T Faye PA Unavailable Unavailable Feola, T Faye PA Unavailable Unavailable Feola, T Faye PA Unavailable Unavailable Feola, T Faye PA Unavailable Unavailable Feola, T Faye PA Unavailable Unavailable Feola, T Faye PA Unavailable Unavailable Feola, T Faye PA Unavailable Unavailable Feola, T Faye PA Unavailable Unavailable Feola, T Faye PA Unavailable Unavailable Feola, T Faye PA Unavailable Unavailable Feola, T Faye PA Unavailable Unavailable Feola, T Faye PA Unavailable Unavailable Feola, T Faye PA Unavailable Unavailable Feola, T Faye PA Unavailable Unavailable Feola, T Faye PA Unavailable Unavailable Feola, T Faye PA Unavailable Unavailable Feola, T Faye PA Unavailable Unavailable Feola, T Faye PA Unavailable Unavailable Feola, T Faye PA Unavailable Unavailable Feola, T Faye PA Unavailable Unavailable Feola, T Faye PA Unavailable Unavailable Feola, T Faye PA Unavailable Unavailable Feola, T Faye PA Unavailable Unavailable Feola, T Faye PA Unavailable Unavailable Feola, T Faye PA Unavailable Unavailable Feola, T Faye PA Unavailable Unavailable Feola, T Faye PA Unavailable Unavailable Feola, T Faye PA Unavailable Unavailable Feola, T Faye PA Unavailable Unavailable Feola, T Faye PA Unavailable Unavailable Feola, T Faye PA Unavailable Unavailable Feola, T Faye PA Unavailable Unavailable Feola, T Faye PA Unavailable Unavailable Feola, T Faye PA Unavailable Unavailable Feola, T Faye PA Unavailable Unavailable Feola, T Faye PA Unavailable Unavailable Feola, T Faye PA Unavailable Unavailable Feola, T Faye PA Unavailable Unavailable Feola, T Faye PA Unavailable Unavailable Feola, T Faye PA Unavailable Unavailable Feola, T Faye PA Unavailable Unavailable Sima Decker MD Unavailable Unavailable Sima Decker MD Unavailable Unavailable Sima Decker MD Unavailable Unavailable Sima Decker MD Unavailable Unavailable Sima Decker MD Unavailable Unavailable Sima Decker MD Unavailable Unavailable Siam Decker MD Unavailable Unavailable Sima Decker MD Unavailable Unavailable Sima Decker MD Unavailable Unavailable Sima eDcker MD Unavailable Unavailable Sima Decker MD Unavailable Unavailable Sima Decker MD Unavailable Unavailable Sima Decker MD Unavailable Unavailable Sima Decker MD Unavailable Unavailable Sima Decker MD Unavailable Unavailable Sima Decker MD Unavailable Unavailable Sima Decker MD Unavailable Unavailable Sima Decker MD Unavailable Unavailable Smia Decker MD Unavailable Unavailable Sima Decker MD Unavailable Unavailable Sima Decker MD Unavailable Unavailable Sima Decker MD Unavailable Unavailable Sima Decker MD Unavailable Unavailable Sima Decker MD Unavailable Unavailable Sima Decker MD Unavailable Unavailable Re-disclosure Warning The records that you are about to access may contain information from federally-assisted alcohol or drug abuse programs. If such information is present, then the following federally mandated warning applies: This information has been disclosed to you from records protected by federal confidentiality rules (42 CFR part 2). The federal rules prohibit you from making any further disclosure of this information unless further disclosure is expressly permitted by the written consent of the person to whom it pertains or as otherwise permitted by 42 CFR part 2. A general authorization for the release of medical or other information is NOT sufficient for this purpose. The Federal rules restrict any use of the information to criminally investigate or prosecute any alcohol or drug abuse patient.The records that you are about to access may contain highly sensitive health information, the redisclosure of which is protected by Article 27-F of the [facility] Public Health law. If you continue you may have access to information: Regarding HIV / AIDS; Provided by facilities licensed or operated by the [facility] Office of Mental Health; or Provided by the [facility] Office for People With Developmental Disabilities. If such information is present, then the following [facility] mandated warning applies: This information has been disclosed to you from confidential records which are protected by state law. State law prohibits you from making any further disclosure of this information without the specific written consent of the person to whom it pertains, or as otherwise permitted by law. Any unauthorized further disclosure in violation of state law may result in a fine or group home sentence or both. A general authorization for the release of medical or other information is NOT sufficient authorization for further disc losure. Family History Family Member Name Family Member Gender Family Member Status Date o f Status Description Data Source(s) Unknown Unknown Problem MEDENT ([facility]) Unknown Unknown Problem [facility] ([facility] Encounters Encounter Providers Location Date Indications Data Source(s ) Unknown [address] [facility] [place] [address] 01/15/2021 12:00:00 AM EST eCW1 ([facility]) Outpatient Attender: Jayla Decker MD 1 06:04:17 PM EDT - 12/10/2020 06:57:29 PM EDT [facility] ([facility]) Outpatient [address] [facility] [place] [address] 11/02/2020 12:00:00 AM EDT [facility]CW1 [facility] Unknown [address] [facility] [place] [address] 06/26/2020 12:00:00 AM EDT eCW1 ([facility]) Unknown [address] [facility] [place] [address] 06/08/2020 12:00:00 AM EDT eCW1 ([facility]) Unknown [address] [facility] [place] [address] 06/04/2020 12:00:00 AM EDT eCW1 ([facility]) Outpatient [address] [facility] [address] [place] [address] 05/15/2020 12:00:00 AM EDT eCW1 ([facility]) Unknown [address] [facility] [place] [address] 05/15/2020 12:00:00 AM EDT eCW1 ([facility]) Unknown [address] [facility] [place] [address] 05/14/2020 12:00:00 AM EDT eCW1 ([facility]) Outpatient Attender: Faye CAMPOS 021 10:32:03 AM EST - 04/26/2020 10:53:34 AM EST [facility] ([facility] ) Unknown [address] [facility] [place] [address] 04/16/2020 12:00:00 AM EST eCW1 ([facility]) Immunizations Vaccine Date Status Description Data Source(s) COVID-19 dose #1 given elsewhere Unspecified 05/04/2020 08:3 1:00 AM EST completed eCW1 ([facility]) COVID-19 dose #1 given elsewhere Unspecified 05/04/2020 08:3 1:00 AM EST completed eCW1 ([facility]) COVID-19 dose #1 given elsewhere Unspecified 05/04/2020 08:3 1:00 AM EST completed eCW1 ([facility]) COVID-19 dose #1 given elsewhere Unspecified 05/04/2020 08:3 1:00 AM EST completed eCW1 ([facility]) COVID-19 dose #1 given elsewhere Unspecified 05/04/2020 08:3 1:00 AM EST completed eCW1 ([facility]) COVID-19 dose #1 given elsewhere Unspecified 05/04/2020 08:3 1:00 AM EST completed eCW1 ([facility]) COVID-19 dose #1 given elsewhere Unspecified 05/04/2020 08:3 1:00 AM EST completed eCW1 ([facility]) COVID-19 VACCINE Lul 05/04/2020 12:00:00 AM EST completed [facility] Vaccine Series Complete: YESThis Data wa s Submitted to [facility] Via [employer]. Medications Medication Brand Name Start Date Product Form Dose Route Admi nistrative Instructions Pharmacy Instructions Status Indications Reaction Description Data Source(s) atorvastatin 40 MG Oral Tablet [Lipitor] Lipitor 40 MG Lipit or 40 MG 06/04/2020 12:00:00 AM EDT 1.0 {tablet} active Li pitor 40 MG eCW1 ([facility]) atorvastatin 40 MG Oral Tablet [Lipitor] Lipitor 40 MG Lipit or 40 MG 06/04/2020 12:00:00 AM EDT 1.0 {tablet} active Li pitor 40 MG eCW1 ([facility]) atorvastatin 40 MG Oral Tablet [Lipitor] Lipitor 40 MG Lipit or 40 MG 06/04/2020 12:00:00 AM EDT 1.0 {tablet} active Li pitor 40 MG eCW1 ([facility]) atorvastatin 40 MG Oral Tablet [Lipitor] Lipitor 40 MG Lipit or 40 MG 06/04/2020 12:00:00 AM EDT 1.0 {tablet} active Li pitor 40 MG eCW1 ([facility]) atorvastatin 40 MG Oral Tablet [Lipitor] Lipitor 40 MG Lipit or 40 MG 06/04/2020 12:00:00 AM EDT 1.0 {tablet} active Li pitor 40 MG eCW1 ([facility]) Cholecalciferol 50 MCG (1999 [facility]) UNK 05/15/2020 12:00:00 AM ED T 1.0 {tablet} active Cholecalciferol 50 M CG (1999 [place]) eCW1 ([facility]) Cholecalciferol 50 MCG (1999 [place]) UNK 05/15/2020 12:00:00 AM ED T 1.0 {tablet} active Cholecalciferol 50 M CG (1999 [place]) eCW1 ([facility]) Cholecalciferol 50 MCG (1999 [place]) UNK 05/15/2020 12:00:00 AM ED T 1.0 {tablet} active Cholecalciferol 50 M CG (1999) eCW1 ([facility]) Cholecalciferol 50 MCG (1999) [facility] 05/15/2020 12:00:00 AM ED T 1.0 {tablet} active Cholecalciferol 50 M CG (1999) eCW1 ([facility]) Cholecalciferol 50 MCG (1999) [facility] 05/15/2020 12:00:00 AM ED T 1.0 {tablet} active Cholecalciferol 50 M CG (1999) eCW1 ([facility]) Cholecalciferol 50 MCG (1999) [facility] 05/15/2020 12:00:00 AM ED T 1.0 {tablet} active Cholecalciferol 50 M CG (1999) eCW1 ([facility]) Cholecalciferol 50 MCG (1999) [facility] 05/15/2020 12:00:00 AM ED T 1.0 {tablet} active Cholecalciferol 50 M CG (1999) eCW1 ([facility]) Insurance Providers Payer name Policy type / Coverage type Policy ID Covered alliance party ID Covered alliance party's relationship to vicente Policy Vicente Plan Information BS Healthy [place] Option A Health Maintenance Organization (HMO) [id number] Self BC/BS Of [facility] [employer] [id number] Self Workers Comp To Employer Workers Compensation [id number] Self Esis [facility] Claims Workers Compensation [id number] Self [facility]BS [facility] 302/307 [id number] SP [id number] [employer]. [id number] Self [id number] [employer] Insurance Co. [id number] Self [id number] [employer] emp [id number] Employee [id number] ANSI-Commercial [id number] ANSI-Not a Secondary Insurance [id number] ANSI-Not a Secondary Insurance [id number] ANSI-Not a Secondary Insurance [id number] ANSI-Commercial [id number] ANSI-Not a Secondary Insurance [id number] ANSI-Medicaid [id number] ANSI-Commercial [id number] [place]BS [place] P[place] 302/307 [id number] SP [id number] [facility] CLAIMS [id number] SP [id number] [facility] [id number] SP [id number] [facility] [id number] SP [id number] BCBS/[employer] Commercial [id number] Self [id number] ANSI-Commercial [id number] ANSI-Not a Secondary Insurance [id number] ANSI-Medicaid [id number] ANSI-Not a Secondary Insurance [id number] ANSI-Medicaid [id number] ANSI-Not a Secondary Insurance [id number] ANSI-Not a Secondary Insurance [id number] ANSI-Medicaid [id number] ANSI-Not a Secondary Insurance [id number] ANSI-Not a Secondary Insurance [id number] ANSI-Not a Secondary Insurance [id number] ANSI-Not a Secondary Insurance [id number] ANSI-Medicaid [id number] ANSI-Not a Secondary Insurance [id number] ANSI-Not a Secondary Insurance [id number] ANSI-Medicaid [id number] ANSI-Medicaid [id number] ANSI-Not a Secondary Insurance [id number] ANSI-Medicaid [id number] ANSI-Not a Secondary Insurance [id number] ANSI-Medicaid [id number] ANSI-Not a Secondary Insurance [id number] RAY [id number] SP [id number] UNHC COMMUNITY PLAN MCDHMO [id number] SP [id number] UNHC COMMUNITY PLAN MCDHMO [id number] SP [id number] [facility] Community Plan Medigap Part B [id number] Self BLUE CROSS BLUE SHIELD-PHYSICIAN [id number] 18 [id number] BLUE [employer]OSS BLUE SHIELD-CLINIC [id number] 18 [id number] BL[employer]UE SHIELD-CLINIC [id number] 18 [id number] MEDICAID-O/P [id number] 18 [id number] BLUE CROSS BLUE SHIELD-O/P [id number] 18 [id number] BLUE CROSS BLUE SHIELD-O/P [id number] 18 [id number] UNHC COMMUNITY PLAN MCDHMO [id number] SP [id number] UNHC COMMUNITY PLAN MCDHMO [id number] SP [id number] UNHC COMMUNITY PLAN MCDHMO [id number] SP [id number] [facility] O [id number] S [id number] [facility] 302/307 [id number] SP [id number] [place] 220/720 [id number] SP [id number] ANSI-Commercial [id number] ANSI-Medicaid [id number] Problems, Conditions, and Diagnoses Code Display Name Description Problem Type Effective Dates Data Source(s) K76.0 [id number] Fatty liver Problem 11/02/2020 12:00:00 AM E DT eCW1 ([facility]) Surgeries/Procedures No Information Results ID Date Data Source HEPATITIS C ANTIBODY INDEX 11/02/2020 12:00:00 AM EDT eCW1 ( [facility]) Name Value Range Interpretation Code Description Data Layla rce(s) Supporting Document(s) < 0.0 <0.8 HEPATITIS C VIRUS LENORA IND EX eCW1 ([facility]) ID Date Data Source HEPATITIS B SURFACE ANTIGEN 11/02/2020 12:00:00 AM EDT eCW1 ([facility]) Name Value Range Interpretation Code Description Data Layla rce(s) Supporting Document(s) NEGATIVE NEGATIVE HEPATITIS B SURFACE ANTIG EN eCW1 ([facility]) ID Date Data Source HEPATITIS B CORE ANTIBODY IGM 11/02/2020 12:00:00 AM EDT eCW 1 ([facility]) Name Value Range Interpretation Code Description Data Layla rce(s) Supporting Document(s) NEGATIVE NEGATIVE HEPATITIS B CORE ANTIBODY IGM eCW1 ([facility]) ID Date Data Source HEPATITIS A ANTIBODY IGM 11/02/2020 12:00:00 AM EDT eCW1 ([facility]) Name Value Range Interpretation Code Description Data Layla rce(s) Supporting Document(s) NEGATIVE NEGATIVE HEPATITIS A ANTIBODY IGM eCW1 ([facility]) ID Date Data Source VITAMIN D 25-HYDROXY 05/15/2020 12:00:00 AM EDT eCW1 ([facility]) Name Value Range Interpretation Code Description Data Layla rce(s) Supporting Document(s) 23.1 30.0-100.0 TOTAL 25(OH) VITAMIN D eC W1 ([facility]) ID Date Data Source TSH 05/15/2020 12:00:00 AM EDT eCW1 ([facility]) Name Value Range Interpretation Code Description Data Layla rce(s) Supporting Document(s) 0.866 0.358-3.740 THYROID STIMULATING HORM ONE eCW1 ([facility]) ID Date Data Source LIPID PANEL (CARDIAC RISK) 05/15/2020 12:00:00 AM EDT eCW1 ( [facility]) Name Value Range Interpretation Code Description Data Layla rce(s) Supporting Document(s) Cholesterol in HDL [Moles/volume] in Serum or Plasma 33 >40 HDL CHOLESTEROL eCW1 ([facility]) Triglyceride [Mass/volume] in Serum or Plasma by calculation 134 <150 TRIGLYCERIDES LEVEL eCW1 ([facility]) Cholesterol in LDL [Mass/volume] in Serum or Plasma by calculation 138 <100 LDL CHOLESTEROL eCW1 ([facility]) Cholesterol [Moles/volume] in Serum or Plasma 198 <200 CHOLESTEROL LEVEL eCW1 ([facility]) 165 NON-HDL-C eCW1 ([facility]) 6.000 <5 CHOLESTEROL RISK RATIO eCW1 ([facility]) ID Date Data Source Comprehensive Metabolic Profile (CMP) 05/15/2020 12:00:00 AM EDT eCW1 ([facility]) Name Value Range Interpretation Code Description Data Layla rce(s) Supporting Document(s) 78 70-100 GLUCOSE, FASTING eCW1 ([facility]) > 60.0 >60 GLOMERULAR FILTRATION RATE eCW 1 ([facility]) 140 136-145 SODIUM LEVEL eCW1 ([facility]) 1.09 0.70-1.30 CREATININE FOR GFR eCW1 ([facility]) 13 7-18 BLOOD UREA NITROGEN eCW1 ([facility]) 4.5 3.5-5.1 POTASSIUM SERUM eCW1 ([facility]) 107 98-107 CHLORIDE LEVEL eCW1 ([facility]) 27 21-32 CARBON DIOXIDE LEVEL eCW1 ([facility]) 9.0 8.5-10.1 CALCIUM LEVEL eCW1 ([facility]) 73 45-117 ALKALINE PHOSPHATASE eCW1 ([facility]) 118 12-78 ALT/SGPT eCW1 ([facility]) 51 7-37 AST/SGOT eCW1 ([facility]) 0.5 0.2-1.0 BILIRUBIN,TOTAL eCW1 ([facility]) 7.2 6.4-8.2 TOTAL PROTEIN eCW1 ([facility]) 1.5 ALBUMIN/GLOBULIN RATIO eCW1 ([facility]) 4.3 3.2-5.2 ALBUMIN eCW1 ([facility]) ID Date Data Source CBC with Differential 05/15/2020 12:00:00 AM EDT eCW1 ([facility]) Name Value Range Interpretation Code Description Data Lalya rce(s) Supporting Document(s) 5.63 4.30-6.10 RED BLOOD COUNT eCW1 ([facility]) 6.9 4.0-10.0 WHITE BLOOD COUNT eCW1 ([facility]) 15.9 13.5-17.5 HEMOGLOBIN eCW1 ([facility]) 83.8 80.0-96.0 MEAN CORPUSCULAR VOLUME e CW1 ([facility]) 47.2 42.0-52.0 HEMATOCRIT eCW1 ([facility]) 28.2 27.0-33.0 MEAN CORPUSCULAR HEMOGLOB IN eCW1 ([facility]) 33.7 32.0-36.5 MEAN CORPUSCULAR HGB CONC eCW1 ([facility]) 49.7 36.0-66.0 NEUTROPHILS % eCW1 ([facility]) 244 150-450 PLATELET COUNT, AUTOMATED eCW1 ([facility]) 13.0 11.5-14.5 RED CELL DISTRIBUTION WID TH eCW1 ([facility]) 9.2 2.0-8.0 MONO % eCW1 ([facility]) 29.9 24.0-44.0 LYMPH % eCW1 ([facility]) 9.1 0.0-3.0 EOS % eCW1 ([facility]) 1.2 0.0-1.0 BASO % eCW1 ([facility]) 2.1 1.5-5.0 LYMPH # eCW1 ([facility]) 0.6 0.0-0.8 MONO # eCW1 ([facility]) 3.5 1.5-8.5 NEUTROPHILS # eCW1 ([facility]) 0.6 0.0-0.5 EOS # eCW1 ([facility]) 0.1 0.0-0.2 BASO # eCW1 ([facility]) ID Date Data Source [id number] 11/21/2019 12:00:00 AM EDT [facility] Name Value Range Interpretation Code Description Data Layla rce(s) Supporting Document(s) SARS coronavirus 2 RNA [Presence] in Res piratory specimen by ABEBE with probe detection [facility] This lab was ordered by Julian Chowdhury and reported by [facility]. Procedure Social History Code Duration Value Status Description Data Source(s ) Smoking 11/02/2020 12:00:00 AM EDT Never Smoker completed Never S moker eCW1 ([facility]) Smoking 11/02/2020 12:00:00 AM EDT Never Smoker completed Never S moker eCW1 ([facility]) Smoking 05/15/2020 12:00:00 AM EDT Never Smoker completed Never S moker eCW1 ([facility]) Smoking 05/15/2020 12:00:00 AM EDT Never Smoker completed Never S moker eCW1 ([facility]) Smoking 05/15/2020 12:00:00 AM EDT Never Smoker completed Never S moker eCW1 ([facility]) Smoking 05/15/2020 12:00:00 AM EDT Never Smoker completed Never S moker eCW1 ([facility]) Smoking 05/15/2020 12:00:00 AM EDT Never Smoker completed Never S moker eCW1 ([facility]) Vital Signs ID Date Data Source UNK Name Value Range Interpretation Code Description Data Source(s) Body weight 236 [lb_av] 236 [lb_av] eCW1 ([facility]) Body height 71 [in_i] 71 [in_i] eCW1 ([facility]) Body mass index (BMI) [Ratio] 32.91 kg/m2 32.91 kg/m2 W1 ([facility]) Heart rate 65 /min 65 /min eCW1 ([facility]) Respiratory rate 18 /min 18 /min eCW1 ([facility]) Body temperature 98 [degF] 98 [degF] eCW1 ([facility]) Systolic blood pressure 120 mm[Hg] 120 mm[Hg] e CW1 ([facility]) Diastolic blood pressure 88 mm[Hg] 88 mm[Hg] eCW1 ([facility]) Body weight 240 [lb_av] 240 [lb_av] eCW1 ([facility]) Body height 71 [in_i] 71 [in_i] eCW1 ([facility]) Body mass index (BMI) [Ratio] 33.47 kg/m2 33.47 kg/m2 eCW1 ([facility]) Heart rate 68 /min 68 /min eCW1 ([facility]) Respiratory rate 18 /min 18 /min eCW1 ([facility]) Body temperature 98.1 [degF] 98.1 [degF] eCW1 ( [facility]) Systolic blood pressure 118 mm[Hg] 118 mm[Hg] e CW1 ([facility]) Diastolic blood pressure 90 mm[Hg] 90 mm[Hg] eCW1 ([facility]) Patient Treatment Plan of Care Planned Activity Planned Date Details Description Data Source (s) atorvastatin 40 MG Oral Tablet [Lipitor] 06/04/2020 12:00:00 AM EDT eCW1 ([facility]) atorvastatin 40 MG Oral Tablet [Lipitor] 06/04/2020 12:00:00 AM EDT eCW1 ([facility]) atorvastatin 40 MG Oral Tablet [Lipitor] 06/04/2020 12:00:00 AM EDT eCW1 ([facility]) atorvastatin 40 MG Oral Tablet [Lipitor] 06/04/2020 12:00:00 AM EDT eCW1 ([facility]) atorvastatin 40 MG Oral Tablet [Lipitor] 06/04/2020 12:00:00 AM EDT eCW1 ([facility]) Cholecalciferol 50 MCG (1999 UT) 05/15/2020 12:00:00 AM EDT eCW1 ([facility]) Cholecalciferol 50 MCG (1999 [place]) 05/15/2020 12:00:00 AM EDT eCW1 ([facility]) Cholecalciferol 50 MCG (1999 UT) 05/15/2020 12:00:00 AM EDT eCW1 ([facility]) Cholecalciferol 50 MCG (1999 UT) 05/15/2020 12:00:00 AM EDT eCW1 ([facility]) Cholecalciferol 50 MCG (1999 UT) 05/15/2020 12:00:00 AM EDT eCW1 ([facility])
[2021-01-16] MEDS ORDERED: ATOR40TA75 (14:50)
--- NOTE | 2021-01-16 17:10 | ECGEPIP ---
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
[2021-01-16 17:17] LABS: BASO % 0.5 % (0.0-1.0); EOS # 0.6 10^3/uL (0.0-0.5); HEMATOCRIT 45.1 % (42.0-52.0); HEMOGLOBIN 15.2 g/dl (13.5-17.5); LYMPH # 1.9 10^3/uL (1.5-5.0); LYMPH % 23.9 % (24.0-44.0); MEAN CORPUSCULAR HEMOGLOBIN 28.5 pg (27.0-33.0); MEAN CORPUSCULAR HGB CONC 33.7 g/dl (32.0-36.5); MEAN CORPUSCULAR VOLUME 84.6 fl (80.0-96.0); MONO # 0.6 10^3/uL (0.0-0.8); MONO % 7.4 % (2.0-8.0); NEUTROPHILS # 4.7 10^3/uL (1.5-8.5); NEUTROPHILS % 59.7 % (36.0-66.0); PLATELET COUNT, AUTOMATED 221 10^3/uL (150-450); RED BLOOD COUNT 5.33 10^6/uL (4.30-6.10); WHITE BLOOD COUNT 7.9 10^3/uL (4.0-10.0)
--- NOTE | 2021-01-16 17:18 | REP ---
INDICATION: Syncope/near-syncope COMPARISON: None. TECHNIQUE: Portable AP view of the chest FINDINGS: The mediastinum and cardiac silhouette are within normal limits for portable technique. The lung driver are clear without acute consolidation, effusion, or pneumothorax. Skeletal structures are intact. IMPRESSION: No acute cardiopulmonary process appreciated. <Electronically signed by Marky Fernandes > 01/16/21 [id number]
[2021-01-16 17:53] LABS: BLOOD UREA NITROGEN 18 MG/DL (7-18); CALCIUM LEVEL 8.8 MG/DL (8.5-10.1); CARBON DIOXIDE LEVEL 27 MEQ/L (21-32); CHLORIDE LEVEL 108 MEQ/L (98-107); CREATININE FOR GFR 1.22 MG/DL (0.70-1.30); GLOMERULAR FILTRATION RATE > 60.0 (>60); GLUCOSE, FASTING 98 MG/DL (70-100); POTASSIUM SERUM 4.2 MEQ/L (3.5-5.1); SODIUM LEVEL 141 MEQ/L (136-145); THYROID STIMULATING HORMONE 0.743 uIU/ML (0.358-3.740)
--- OUTSIDE RECORDS SUMMARY | 2021-01-16 18:11 | CCD ---
Author Author [facility] Organization [facility] Address Unknown Phone Unavailable Care Team Providers Care Tent Worker Name Role Phone Feola, T Faye PA Unavailable Unavailable Feola, T Faye PA Unavailable Unavailable Feola, T Faye PA Unavailable Unavailable Feola, T Faye PA Unavailable Unavailable Feola, T Faye PA Unavailable Unavailable Feola, T Faye PA Unavailable Unavailable Feola, T Faye PA Unavailable Unavailable Feola, T Faye PA Unavailable Unavailable Feola, T Faye PA Unavailable Unavailable Feola, T Fyae PA Unavailable Unavailable Feola, T Faye PA [...] is protected by Article 27-F of the [place] Public Health law. If you continue you may have access to information: Regarding HIV / AIDS; Provided by facilities licensed or operated by the [place] Office of Mental Health; or Provided by the [place] [facility] Office for People With Developmental Disabilities. If such information is present, then the following [place] [facility] mandated warning applies: This information has been [...] law may result in a fine or mcc sentence or both. A general authorization for the release of medical or other information is NOT sufficient authorization for further disc losure. Family History Family Member Name Family Member Gender Family Member Status Date o f Status Description Data Source(s) Unknown Unknown Problem MEDENT ([facility]) Unknown Unknown Problem [facility] ([facility] Encounters Encounter Providers Location Date Indications Data Source(s ) Unknown [address] [facility] [place] [address] 01/15/2021 12:00:00 AM EST eCW1 ([facility]) Outpatient Attender: Jayla Decker MD 1 06:04:17 PM EDT - 12/10/2020 06:57:29 PM EDT [facility] ([facility]) Outpatient [address] [facility] [place] [address] 11/02/2020 12:00:00 AM EDT [facility]CW[facility] Unknown [address] [facility] [place] [address] 06/26/2020 12:00:00 AM EDT eCW1 ([facility]) Unknown [address] [facility] [place] [address] 06/08/2020 12:00:00 AM EDT eCW1 ([facility]) Unknown [address] [facility] [place] [address] 06/04/2020 12:00:00 AM EDT eCW1 ([facility]) [place]patient [address] [facility] [address] [place] [address] 05/15/2020 12:00:00 AM EDT eCW1 ([facility]) Unknown [address] [facility] [address] [place] [address] 05/15/2020 12:00:00 AM EDT eCW1 ([facility]) Unknown [address] [facility] [address] [place] [address] 05/14/2020 12:00:00 AM EDT eCW1 ([facility]) Outpatient Attender: Faye CAMPOS 021 10:32:03 AM EST - 04/26/2020 10:53:34 AM EST [facility] ([facility] ) Unknown [address] [facility] [place] [address] 04/16/2020 12:00:00 AM EST eCW1 ([facility]) Immunizations Vaccine Date Status Description Data Source(s) COVID-19 dose #1 given elsewhere Unspecified 05/04/2020 08:3 1:00 AM EST completed eCW1 ([facility]) COVID-19 dose #1 given elsewhere Unspecified 05/04/2020 08:3 1:00 AM EST completed eCW1 ([facility]) COVID-19 dose #1 given elsewhere Unspecified 05/04/2020 08:3 1:00 AM EST completed eCW1 ([facility]) COVID-19 dose #1 given elsewhere Unspecified 05/04/2020 08:3 1:00 AM EST completed eCW1 ([facility]) COVID-19 dose #1 given elsewhere Unspecified 05/04/2020 08:3 1:00 AM EST completed eCW1 ([facility]) COVID-19 dose #1 given elsewhere Unspecified 05/04/2020 08:3 1:00 AM EST completed eCW1 ([facility]) COVID-19 dose #1 given elsewhere Unspecified 05/04/2020 08:3 1:00 AM EST completed eCW1 ([facility]) COVID-19 VACCINE Lul 05/04/2020 12:00:00 AM EST completed [place]SIIS Vaccine Series Complete: YESThis Data wa s Submitted to [facility]. Medications Medication Brand Name Start Date Product Form Dose Route Admi nistrative Instructions Pharmacy Instructions Status Indications Reaction Description Data Source(s) atorvastatin 40 MG Oral Tablet [Lipitor] Lipitor 40 MG Lipit or 40 MG 06/04/2020 12:00:00 AM EDT 1.0 {tablet} active Li pitor 40 MG eCW1 ([facility]) atorvastatin 40 MG Oral Tablet [Lipitor] Lipitor 40 MG Lipit or 40 MG 06/04/2020 12:00:00 AM EDT 1.0 {tablet} active Li pitor 40 MG eCW1 ([facility]) atorvastatin 40 MG Oral Tablet [Lipitor] Lipitor 40 MG Lipit or 40 MG 06/04/2020 12:00:00 AM EDT 1.0 {tablet} active Li pitor 40 MG eCW1 ([facility]) atorvastatin 40 MG Oral Tablet [Lipitor] Lipitor 40 MG Lipit or 40 MG 06/04/2020 12:00:00 AM EDT 1.0 {tablet} active Li pitor 40 MG eCW1 ([facility]) atorvastatin 40 MG Oral Tablet [Lipitor] Lipitor 40 MG Lipit or 40 MG 06/04/2020 12:00:00 AM EDT 1.0 {tablet} active Li pitor 40 MG eCW1 ([facility]) Cholecalciferol 50 MCG (1999 [place]) UNK 05/15/2020 12:00:00 AM ED T 1.0 {tablet} active Cholecalciferol 50 M CG (1999 [place]) eCW1 ([facility]) Cholecalciferol 50 MCG (1999 [place]) UNK 05/15/2020 12:00:00 AM ED T 1.0 {tablet} active Cholecalciferol 50 M CG (1999 [place]) eCW1 ([facility]) Cholecalciferol 50 MCG (1999 [place]) UNK 05/15/2020 12:00:00 AM ED T 1.0 {tablet} active Cholecalciferol 50 M CG (1999) eCW1 ([facility]) Cholecalciferol 50 MCG (1999) [facility] 05/15/2020 12:00:00 AM ED T 1.0 {tablet} active Cholecalciferol 50 M CG (1999) eCW1 ([facility]) Cholecalciferol 50 MCG (1999) [facility] 05/15/2020 12:00:00 AM ED T 1.0 {tablet} active Cholecalciferol 50 M CG (1999) eCW1 ([facility]) Cholecalciferol 50 MCG (1999) [facility] 05/15/2020 12:00:00 AM ED T 1.0 {tablet} active Cholecalciferol 50 M CG (1999) eCW1 ([facility]) Cholecalciferol 50 MCG (1999) [facility] 05/15/2020 12:00:00 AM ED T 1.0 {tablet} active Cholecalciferol 50 M CG (1999) eCW1 ([facility]) Insurance Providers Payer name Policy type / Coverage type Policy ID Covered green party ID Covered green party's relationship to vicente Policy Vicente Plan Information BS Healthy [place] Option A Health Maintenance Organization (HMO) [id number] Self BC/BS Of [facility] [employer] [id number] Self Workers Comp To Employer Workers Compensation [id number] Self [facility] Claims Workers Compensation [id number] Self [facility]/307 [id number] SP [id number] [employer] [id number] Self [id number] [employer] [id number] Self [id number] ESCRE[employer] NATIONAL ACCOUNT emp [id number] Employee [id number] ANSI-Commercial [id number] ANSI-Not a Secondary Insurance [id number] ANSI-Not a Secondary Insurance [id number] ANSI-Not a Secondary Insurance [id number] ANSI-Commercial [id number] ANSI-Not a Secondary Insurance [id number] ANSI-Medicaid [id number] ANSI-Commercial [id number] [place]BS [place] PPO 302/307 [id number] SP [id number] [facility] [place] [place]S [id number] SP [id number] [facility] [id number] SP [id number] [facility] [id number] SP [id number] BCBS/[employer] Commercial [id number] Self [id number] ANSI-Commercial [id number] ANSI-Not a Secondary Insurance [id number] ANSI-Medicaid [id number] ANSI-Not a Secondary Insurance [id number] ANSI-Medicaid [id number] ANSI-Not a Secondary Insurance [id number] ANSI-Not a Secondary Insurance [id number] ANSI-Medicaid [id number] ANSI-Not a Secondary Insurance [id number] ANSI-Not a Secondary Insurance [id number] ANSI-Not a Secondary Insurance [id number] ANSI-Not a Secondary Insurance [id number] ANSI-Medicaid [id number] ANSI-Not a Secondary Insurance [id number] ANSI-Not a Secondary Insurance [id number] ANSI-Medicaid [id number] ANSI-Medicaid [id number] ANSI-Not a Secondary Insurance [id number] ANSI-Medicaid [id number] ANSI-Not a Secondary Insurance [id number] ANSI-Medicaid [id number] ANSI-Not a Secondary Insurance [id number] RAY [id number] SP [id number] UNHC COMMUNITY PLAN MCDHMO [id number] SP [id number] UNHC COMMUNITY PLAN MCDHMO [id number] SP [id number] [facility] Community Plan Medigap Part B [id number] Self BLUE CROSS BLUE SHIELD-PHYSICIAN [id number] BLUE CROSS BLUE SHIELD-CLINIC [id number] 18 [id number] BLUE CROSS BLUE SHIELD-CLINIC [id number] MEDICAID-O/P [id number] BLUE CROSS BLUE SHIELD-O/P [id number] 18 [id number] BLUE CROSS BLUE SHIELD-O/P [id number] 18 [id number] UNHC COMMUNITY PLAN MCDHMO [id number] SP [id number] UNHC COMMUNITY PLAN MCDHMO [id number] SP [id number] UNHC COMMUNITY PLAN MCDHMO [id number] SP [id number] [facility] O [id number] S [id number] BCBS [facility] 302/307 [id number] SP [id number] BCBS [place] 220/720 [id number] SP [id number] ANSI-Commercial [id number] ANSI-Medicaid [id number] Problems, Conditions, and Diagnoses Code Display Name Description Problem Type Effective Dates Data Source(s) K76.0 [id number] Fatty liver Problem 11/02/2020 12:00:00 AM E DT eCW1 ([facility]) Surgeries/Procedures No Information Results ID Date Data Source HEPATITIS C ANTIBODY INDEX 11/02/2020 12:00:00 AM EDT eCW1 ( [facility]) Name Value Range Interpretation Code Description Data Layla rce(s) Supporting Document(s) < 0.0 <0.8 HEPATITIS C VIRUS LENORA IND EX eCW1 ([facility]) ID Date Data Source HEPATITIS B SURFACE ANTIGEN 11/02/2020 12:00:00 AM EDT eCW1 ([facility]) Name Value Range Interpretation Code Description Data Layla rce(s) Supporting Document(s) NEGATIVE NEGATIVE HEPATITIS B SURFACE ANTIG EN eCW1 ([facility]) ID Date Data Source HEPATITIS B CORE ANTIBODY IGM 11/02/2020 12:00:00 AM EDT eCW 1 ([facility]) Name Value Range Interpretation Code Description Data Layla rce(s) Supporting Document(s) NEGATIVE NEGATIVE HEPATITIS B CORE ANTIBODY IGM eCW1 ([facility]) ID Date Data Source HEPATITIS A ANTIBODY IGM 11/02/2020 12:00:00 AM EDT eCW1 ([facility]) Name Value Range Interpretation Code Description Data Layla rce(s) Supporting Document(s) NEGATIVE NEGATIVE HEPATITIS A ANTIBODY IGM eCW1 ([facility]) ID Date Data Source VITAMIN D 25-HYDROXY 05/15/2020 12:00:00 AM EDT eCW1 ([facility]) Name Value Range Interpretation Code Description Data Layla rce(s) Supporting Document(s) 23.1 30.0-100.0 TOTAL 25(OH) VITAMIN D eC W1 ([facility]) ID Date Data Source TSH 05/15/2020 12:00:00 AM EDT eCW1 ([facility]) Name Value Range Interpretation Code Description Data Layla rce(s) Supporting Document(s) 0.866 0.358-3.740 THYROID STIMULATING HORM ONE eCW1 ([facility]) ID Date Data Source LIPID PANEL (CARDIAC RISK) 05/15/2020 12:00:00 AM EDT eCW1 ( [facility]) Name Value Range Interpretation Code Description Data Layla rce(s) Supporting Document(s) Cholesterol in HDL [Moles/volume] in Serum or Plasma 33 >40 HDL CHOLESTEROL eCW1 ([facility]) Triglyceride [Mass/volume] in Serum or Plasma by calculation 134 <150 TRIGLYCERIDES LEVEL eCW1 ([facility]) Cholesterol in LDL [Mass/volume] in Serum or Plasma by calculation 138 <100 LDL CHOLESTEROL eCW1 ([facility]) Cholesterol [Moles/volume] in Serum or Plasma 198 <200 CHOLESTEROL LEVEL eCW1 ([facility]) 165 NON-HDL-C eCW1 ([facility]) 6.000 <5 CHOLESTEROL RISK RATIO eCW1 ([facility]) ID Date Data Source Comprehensive Metabolic Profile (CMP) 05/15/2020 12:00:00 AM EDT eCW1 ([facility]) Name Value Range Interpretation Code Description Data Layla rce(s) Supporting Document(s) 78 70-100 GLUCOSE, FASTING eCW1 ([facility]) > 60.0 >60 GLOMERULAR FILTRATION RATE eCW 1 ([facility]) 140 136-145 SODIUM LEVEL eCW1 ([facility]) 1.09 0.70-1.30 CREATININE FOR GFR eCW1 ([facility]) 13 7-18 BLOOD UREA NITROGEN eCW1 ([facility]) 4.5 3.5-5.1 POTASSIUM SERUM eCW1 ([facility]) 107 98-107 CHLORIDE LEVEL eCW1 ([facility]) 27 21-32 CARBON DIOXIDE LEVEL eCW1 ([facility]) 9.0 8.5-10.1 CALCIUM LEVEL eCW1 ([facility]) 73 45-117 ALKALINE PHOSPHATASE eCW1 ([facility]) 118 12-78 ALT/SGPT eCW1 ([facility]) 51 7-37 AST/SGOT eCW1 ([facility]) 0.5 0.2-1.0 BILIRUBIN,TOTAL eCW1 ([facility]) 7.2 6.4-8.2 TOTAL PROTEIN eCW1 ([facility]) 1.5 ALBUMIN/GLOBULIN RATIO eCW1 ([facility]) 4.3 3.2-5.2 ALBUMIN eCW1 ([facility]) ID Date Data Source CBC with Differential 05/15/2020 12:00:00 AM EDT eCW1 ([facility]) Name Value Range Interpretation Code Description Data Layla rce(s) Supporting Document(s) 5.63 4.30-6.10 RED BLOOD COUNT eCW1 ([facility]) 6.9 4.0-10.0 WHITE BLOOD COUNT eCW1 ([facility]) 15.9 13.5-17.5 HEMOGLOBIN eCW1 ([facility]) 83.8 80.0-96.0 MEAN CORPUSCULAR VOLUME e CW1 ([facility]) 47.2 42.0-52.0 HEMATOCRIT eCW1 ([facility]) 28.2 27.0-33.0 MEAN CORPUSCULAR HEMOGLOB IN eCW1 ([facility]) 33.7 32.0-36.5 MEAN CORPUSCULAR HGB CONC eCW1 ([facility]) 49.7 36.0-66.0 NEUTROPHILS % eCW1 ([facility]) 244 150-450 PLATELET COUNT, AUTOMATED eCW1 ([facility]) 13.0 11.5-14.5 RED CELL DISTRIBUTION WID TH eCW1 ([facility]) 9.2 2.0-8.0 MONO % eCW1 ([facility]) 29.9 24.0-44.0 LYMPH % eCW1 ([facility]) 9.1 0.0-3.0 EOS % eCW1 ([facility]) 1.2 0.0-1.0 BASO % eCW1 ([facility]) 2.1 1.5-5.0 LYMPH # eCW1 ([facility]) 0.6 0.0-0.8 MONO # eCW1 ([facility]) 3.5 1.5-8.5 NEUTROPHILS # eCW1 ([facility]) 0.6 0.0-0.5 EOS # eCW1 ([facility]) 0.1 0.0-0.2 BASO # eCW1 ([facility]) ID Date Data Source [id number] 11/21/2019 12:00:00 AM EDT [facility] Name Value Range Interpretation Code Description Data Layla rce(s) Supporting Document(s) SARS coronavirus 2 RNA [Presence] in Res piratory specimen by ABEBE with probe detection [facility] This lab was ordered by Julian Chowdhury and reported by [facility]. Procedure Social History Code Duration Value Status Description Data Source(s ) Smoking 11/02/2020 12:00:00 AM EDT Never Smoker completed Never S moker eCW1 ([facility]) Smoking 11/02/2020 12:00:00 AM EDT Never Smoker completed Never S moker eCW1 ([facility]) Smoking 05/15/2020 12:00:00 AM EDT Never Smoker completed Never S moker eCW1 ([facility]) Smoking 05/15/2020 12:00:00 AM EDT Never Smoker completed Never S moker eCW1 ([facility]) Smoking 05/15/2020 12:00:00 AM EDT Never Smoker completed Never S moker eCW1 ([facility]) Smoking 05/15/2020 12:00:00 AM EDT Never Smoker completed Never S moker eCW1 ([facility]) Smoking 05/15/2020 12:00:00 AM EDT Never Smoker completed Never S moker eCW1 ([facility]) Vital Signs ID Date Data Source UNK Name Value Range Interpretation Code Description Data Source(s) Body weight 236 [lb_av] 236 [lb_av] eCW1 ([facility]) Body height 71 [in_i] 71 [in_i] eCW1 ([facility]) Body mass index (BMI) [Ratio] 32.91 kg/m2 32.91 kg/m2 W1 ([facility]) Heart rate 65 /min 65 /min eCW1 ([facility]) Respiratory rate 18 /min 18 /min eCW1 ([facility]) Body temperature 98 [degF] 98 [degF] eCW1 ([facility]) Systolic blood pressure 120 mm[Hg] 120 mm[Hg] e CW1 ([facility]) Diastolic blood pressure 88 mm[Hg] 88 mm[Hg] eCW1 ([facility]) Body weight 240 [lb_av] 240 [lb_av] eCW1 ([facility]) Body height 71 [in_i] 71 [in_i] eCW1 ([facility]) Respiratory rate 18 /min 18 /min eCW1 ([facility]) Body temperature 98.1 [degF] 98.1 [degF] eCW1 ( [facility]) Systolic blood pressure 118 mm[Hg] 118 mm[Hg] e CW1 ([facility]) Body mass index (BMI) [Ratio] 33.47 kg/m2 33.47 kg/m2 eCW1 ([facility]) Diastolic blood pressure 90 mm[Hg] 90 mm[Hg] eCW1 ([facility]) Heart rate 68 /min 68 /min eCW1 ([facility]) Patient Treatment Plan of Care Planned Activity Planned Date Details Description Data Source (s) atorvastatin 40 MG Oral Tablet [Lipitor] 06/04/2020 12:00:00 AM EDT eCW1 ([facility]) atorvastatin 40 MG Oral Tablet [Lipitor] 06/04/2020 12:00:00 AM EDT eCW1 ([facility]) atorvastatin 40 MG Oral Tablet [Lipitor] 06/04/2020 12:00:00 AM EDT eCW1 ([facility]) atorvastatin 40 MG Oral Tablet [Lipitor] 06/04/2020 12:00:00 AM EDT eCW1 ([facility]) atorvastatin 40 MG Oral Tablet [Lipitor] 06/04/2020 12:00:00 AM EDT eCW1 ([facility]) Cholecalciferol 50 MCG (1999 [place]) 05/15/2020 12:00:00 AM EDT eCW1 ([facility]) Cholecalciferol 50 MCG (1999 [place]) 05/15/2020 12:00:00 AM EDT eCW1 ([facility]) Cholecalciferol 50 MCG (1999 [place]) 05/15/2020 12:00:00 AM EDT eCW1 ([facility]) Cholecalciferol 50 MCG (1999 [place]) 05/15/2020 12:00:00 AM EDT eCW1 ([facility]) Cholecalciferol 50 MCG (1999 [place]) 05/15/2020 12:00:00 AM EDT eCW1 ([facility])
[2021-01-16 18:26] LABS: RSV AMPLIFICATION NEGATIVE (NEGATIVE)
[2021-01-16 19:17] VITALS: BP 152/98
== END 2021-01-16 19:22 | disposition home or self-care (01) ==
LOC: M ED 14:38
DX: R55 Syncope and collapse (principal); J45.909 Unspecified asthma, uncomplicated; F41.9 Anxiety disorder, unspecified; Z79.899 Other long term (current) drug therapy

== ENCOUNTER → 2021-02-01 | Outpatient (CLI) | payer OTHER ==
[~2021-02-01] MED LIST changes: +ATOR40TA75
== END ==
LOC: M PLARAD 07:45
PROVIDERS: ATTEND Physician Assistant Medical
DX: R40.20 Unspecified coma (principal)

== ENCOUNTER → 2021-04-05 | Outpatient (REF) | payer OTHER ==
[2021-04-05 13:47] LABS: ALT/SGPT 97 U/L (12-78); BILIRUBIN,TOTAL 0.4 MG/DL (0.2-1.0); BLOOD UREA NITROGEN 18 MG/DL (7-18); CALCIUM LEVEL 8.8 MG/DL (8.5-10.1); CARBON DIOXIDE LEVEL 26 MEQ/L (21-32); CHLORIDE LEVEL 108 MEQ/L (98-107); CHOLESTEROL LEVEL 123 MG/DL (<200); CHOLESTEROL RISK RATIO 3.843 (<5); CREATININE FOR GFR 1.07 MG/DL (0.70-1.30); GLOMERULAR FILTRATION RATE > 60.0 (>60); GLUCOSE, FASTING 83 MG/DL (70-100); HDL CHOLESTEROL 32 MG/DL (>40); LDL CHOLESTEROL 72 MG/DL (<100); NON-HDL-C 91 MG/DL; POTASSIUM SERUM 4.3 MEQ/L (3.5-5.1); SODIUM LEVEL 141 MEQ/L (136-145); THYROID STIMULATING HORMONE 0.967 uIU/ML (0.358-3.740); TOTAL 25(OH) VITAMIN D 28.9 NG/ML (30.0-100.0); TOTAL PROTEIN 6.7 GM/DL (6.4-8.2); TRIGLYCERIDES LEVEL 95 MG/DL (<150)
== END ==
LOC: M SFHCADAM 08:43
PROVIDERS: ATTEND Physician Assistant Medical
DX: K76.0 Fatty (change of) liver, not elsewhere classified (principal)

== ENCOUNTER → 2021-10-09 | Outpatient (REF) | payer OTHER ==
[2021-10-09 17:16] LABS: BASO # 0.1 10^3/uL (0.0-0.2); BASO % 0.8 % (0.0-1.0); EOS # 0.7 10^3/uL (0.0-0.5); EOS % 6.8 % (0.0-3.0); HEMATOCRIT 46.3 % (42.0-52.0); HEMOGLOBIN 15.5 g/dl (13.5-17.5); LYMPH # 2.7 10^3/uL (1.5-5.0); LYMPH % 28.6 % (24.0-44.0); MEAN CORPUSCULAR HEMOGLOBIN 28.8 pg (27.0-33.0); MEAN CORPUSCULAR HGB CONC 33.5 g/dl (32.0-36.5); MEAN CORPUSCULAR VOLUME 86.1 fl (80.0-96.0); MONO # 0.7 10^3/uL (0.0-0.8); MONO % 7.7 % (2.0-8.0); NEUTROPHILS # 5.2 10^3/uL (1.5-8.5); NEUTROPHILS % 55.3 % (36.0-66.0); PLATELET COUNT, AUTOMATED 245 10^3/uL (150-450); RED BLOOD COUNT 5.38 10^6/uL (4.30-6.10); WHITE BLOOD COUNT 9.5 10^3/uL (4.0-10.0)
[2021-10-09 17:54] LABS: ALBUMIN 4.1 GM/DL (3.2-5.2); ALT/SGPT 93 U/L (12-78); BILIRUBIN,TOTAL 0.7 MG/DL (0.2-1.0); BLOOD UREA NITROGEN 14 MG/DL (7-18); CALCIUM LEVEL 8.7 MG/DL (8.5-10.1); CARBON DIOXIDE LEVEL 28 MEQ/L (21-32); CHLORIDE LEVEL 106 MEQ/L (98-107); CREATININE FOR GFR 1.12 MG/DL (0.70-1.30); FREE T4 0.96 NG/DL (0.76-1.46); GLOMERULAR FILTRATION RATE > 60.0 (>60); GLUCOSE, FASTING 79 MG/DL (70-100); POTASSIUM SERUM 3.9 MEQ/L (3.5-5.1); SODIUM LEVEL 139 MEQ/L (136-145); THYROID STIMULATING HORMONE 0.796 uIU/ML (0.358-3.740); TOTAL PROTEIN 7.2 GM/DL (6.4-8.2)
== END ==
LOC: M SFHCADAM 14:17
PROVIDERS: ATTEND Family Medicine
DX: R53.83 Other fatigue (principal); R03.0 Elevated blood-pressure reading, without diagnosis of hypertension

== ENCOUNTER 2021-10-25 12:14 | Emergency (ER) | payer OTHER ==
[~2021-10-25] VITALS: Ht 180.3 cm; Wt 104.5 kg
[2021-10-25] MEDS ORDERED: NIRM1TAB (12:48)
[2021-10-25 14:49] LABS: BASO % 0.2 % (0.0-1.0); EOS % 0.5 % (0.0-3.0); HEMATOCRIT 48.3 % (42.0-52.0); HEMOGLOBIN 16.1 g/dl (13.5-17.5); LYMPH # 1.5 10^3/uL (1.5-5.0); LYMPH % 17.2 % (24.0-44.0); MEAN CORPUSCULAR HEMOGLOBIN 28.1 pg (27.0-33.0); MEAN CORPUSCULAR HGB CONC 33.3 g/dl (32.0-36.5); MEAN CORPUSCULAR VOLUME 84.3 fl (80.0-96.0); MONO # 0.6 10^3/uL (0.0-0.8); MONO % 6.8 % (2.0-8.0); NEUTROPHILS # 6.4 10^3/uL (1.5-8.5); NEUTROPHILS % 74.8 % (36.0-66.0); PLATELET COUNT, AUTOMATED 205 10^3/uL (150-450); RED BLOOD COUNT 5.73 10^6/uL (4.30-6.10); WHITE BLOOD COUNT 8.6 10^3/uL (4.0-10.0)
[2021-10-25] MEDS ORDERED: ISOVUE-370 76% 100ML VIAL As Ordered ONE (14:56)
[2021-10-25 15:20] LABS: ALBUMIN 3.9 GM/DL (3.2-5.2); BILIRUBIN,DIRECT 0.2 MG/DL (0.0-0.2); BILIRUBIN,TOTAL 0.6 MG/DL (0.2-1.0); TOTAL PROTEIN 7.2 GM/DL (6.4-8.2)
[2021-10-25] MEDS ORDERED: MORPHINE 4 MG/ML 1ML VIAL/SYRINGE IV ONE ×2 (17:10→20:20)
[2021-10-25] MEDS ORDERED: HEPARIN DRIP 25,000 UNITS in IV 1 EA IV SCH (18:20)
[2021-10-25 19:10] LABS: INR 0.97; PROTHROMBIN TIME 13.3 SECONDS (12.7-14.5)
[2021-10-25 19:11] LABS: PARTIAL THROMBOPLASTIN TIME 29.1 SECONDS (25.9-37.0)
[2021-10-25] MEDS: NS 1,000 ML IV SCH (19:20)
[2021-10-25] MEDS ORDERED: NS 1,000 ML IV ONE (19:20)
[2021-10-25] MEDS ORDERED: HEPARIN SOD (PORCINE) 5000UNITS/ML 1ML VIAL/SYRINGE IV PRN (19:35)
[2021-10-25] MEDS: HEPARIN DRIP 25,000 UNITS in IV 1 EA IV SCH (20:13)
[2021-10-26] MEDS: MORPHINE 4 MG/ML 1ML VIAL/SYRINGE IV PRN ×2 (00:51→08:56)
[2021-10-26] MEDS: NS 1,000 ML IV SCH ×2 (02:00→08:40)
[2021-10-26] MEDS: HEPARIN DRIP 25,000 UNITS in IV 1 EA IV SCH ×2 (02:38→08:47)
[2021-10-26 08:53] VITALS: BP 139/88
== END 2021-10-26 08:55 | disposition short-term general hospital (02) ==
LOC: M ED 12:14
DX: R00.1 Bradycardia, unspecified (principal); N28.0 Ischemia and infarction of kidney; E78.5 Hyperlipidemia, unspecified; J45.909 Unspecified asthma, uncomplicated; K57.92 Diverticulitis of intestine, part unspecified, without perforation or abscess without bleeding; K76.0 Fatty (change of) liver, not elsewhere classified; Z79.899 Other long term (current) drug therapy
CPT/HCPCS: 74177; 80047; 80076; 81000; 81015; 81240; 83690; 84311; 85025; 85300; 85301; 85303; 85305; 85610; 85730; 86147; 87635; 93005; 96365; 96366; 96375; 96376; 99285; J1644; J2270; Q9967

== ENCOUNTER → 2022-04-17 | Outpatient (CLI) | payer OTHER ==
[~2022-04-17] MED LIST changes: +NIRM1TAB
== END ==
LOC: M SLEEP 20:00
PROVIDERS: ATTEND Nurse Practitioner Family
DX: G47.33 Obstructive sleep apnea (adult) (pediatric) (principal)

== ENCOUNTER → 2022-05-13 | Outpatient (CLI) | payer OTHER | LOC: M PLALAB 07:41 | PROVIDERS: ATTEND Internal Medicine Hematology | DX: N28.0 Ischemia and infarction of kidney (principal) ==

== ENCOUNTER → 2022-06-10 | Outpatient (CLI) | payer OTHER | LOC: M PLALAB 08:05 | PROVIDERS: ATTEND Internal Medicine Hematology | DX: D68.51 Activated protein C resistance (principal) ==

== ENCOUNTER → 2023-07-30 | Outpatient (REF) | payer OTHER ==
[~2023-07-30] MED LIST changes: +FLUO-365 PO; -FLUO20CA22 PO
[2023-07-30 15:04] LABS: BASO # 0.1 10^3/uL (0.0-0.2); BASO % 0.9 % (0.0-1.0); EOS # 0.9 10^3/uL (0.0-0.5); EOS % 10.8 % (0.0-3.0); HEMOGLOBIN 15.9 g/dl (13.5-17.5); LYMPH # 2.1 10^3/uL (1.5-5.0); LYMPH % 26.3 % (24.0-44.0); MEAN CORPUSCULAR HGB CONC 33.8 g/dl (32.0-36.5); MEAN CORPUSCULAR VOLUME 85.8 fl (80.0-96.0); MONO # 0.7 10^3/uL (0.0-0.8); MONO % 8.4 % (2.0-8.0); NEUTROPHILS # 4.3 10^3/uL (1.5-8.5); NEUTROPHILS % 53.3 % (36.0-66.0); PLATELET COUNT, AUTOMATED 226 10^3/uL (150-450); RED BLOOD COUNT 5.48 10^6/uL (4.30-6.10)
[2023-07-30 15:32] LABS: ALBUMIN 4.3 G/DL (3.2-5.2); ALKALINE PHOSPHATASE 94 U/L (46-116); ALT/SGPT 97 U/L (7.0-40); AST/SGOT 45 U/L (<34); BILIRUBIN,TOTAL 0.7 MG/DL (0.3-1.2); BLOOD UREA NITROGEN 20 MG/DL (9-23); CALCIUM LEVEL 9.4 MG/DL (8.5-10.1); CARBON DIOXIDE LEVEL 29 MMOL/L (20-31); CHLORIDE LEVEL 107 MMOL/L (98-107); CHOLESTEROL LEVEL 139 MG/DL (<200); CREATININE FOR GFR 1.25 MG/DL (0.70-1.30); GLOMERULAR FILTRATION RATE > 60.0 (>56); GLUCOSE, FASTING 67 MG/DL (60-100); HDL CHOLESTEROL 32.3 MG/DL (>40); LDL CHOLESTEROL 85.9 MG/DL (<100); NON-HDL-C 106.7 MG/DL; POTASSIUM SERUM 5.1 MMOL/L (3.5-5.1); SODIUM LEVEL 140 MMOL/L (136-145); TOTAL PROTEIN 6.8 G/DL (5.7-8.2); TRIGLYCERIDES LEVEL 104 MG/DL (<150)
[2023-07-30 15:33] LABS: THYROID STIMULATING HORMONE 0.782 uIU/ML (0.55-4.78)
[2023-07-30 15:34] LABS: TOTAL 25(OH) VITAMIN D 27.8 NG/ML (20.0-100.0)
== END ==
LOC: M SFHCADAM 10:32
PROVIDERS: ATTEND Physician Assistant Medical
DX: G47.33 Obstructive sleep apnea (adult) (pediatric) (principal); J45.20 Mild intermittent asthma, uncomplicated; F34.1 Dysthymic disorder; E55.9 Vitamin D deficiency, unspecified; E66.9 Obesity, unspecified; D68.51 Activated protein C resistance; K76.0 Fatty (change of) liver, not elsewhere classified